=== PATIENT | male | born 1970 | race African-American/Black ===

== ENCOUNTER → 2016-10-25 | Outpatient (CLI) | payer OTHER ==
--- NOTE | 2016-10-25 12:43 | XR ---
EXAMINATION TYPE: XR lumbar spine 2 or 3V DATE OF EXAM ORDERED: 10/25/2016 12:19 PM HISTORY: Lifting trauma. COMPARISON: None. FINDINGS: Vertebral body height and alignment are maintained. Disc spaces are maintained. There is n o fractures identified. There is no evidence of spondylolysis or spondylolisthesis. The pedicles are intact. IMPRESSION: NORMAL LUMBOSACRAL SPINE.
== END | disposition home or self-care (01) ==
LOC: RADXRMAIN 11:45
PROVIDERS: ATTEND Family Medicine
DX: S39.012A Strain of muscle, fascia and tendon of lower back, initial encounter (principal)
CPT/HCPCS: 72100

== ENCOUNTER → 2020-11-16 | Outpatient (CLI) | payer OTHER ==
--- NOTE | 2020-11-16 10:12 | XR ---
EXAMINATION TYPE: XR abdomen 1V DATE OF EXAM: 11/16/2020 COMPARISON: NONE HISTORY: Pain TECHNIQUE: Single supine KUB image of the abdomen is obtained FINDINGS: Small bowel demonstrates no evidence for dilatation or air fluid levels. Gas and fecal material is seen in non-distended colon. No convincing evidence for pneumoperitoneum. No unusual calcifications. Phlebolith noted within the right hemipelvis. The lung bases are clear. The osseous structures are intact. IMPRESSION: 1. Overall nonobstructive bowel gas pattern.
== END | disposition home or self-care (01) ==
LOC: RADXRMAIN 09:00
PROVIDERS: ATTEND Family Medicine
DX: R31.29 Other microscopic hematuria (principal)
CPT/HCPCS: 74018

== ENCOUNTER 2021-04-04 06:46 | Day surgery (SDC) | payer OTHER ==
[2021-04-03 08:37] VITALS: BMI 37.5
[2021-04-04 07:22] VITALS: TEMP 96.9
[2021-04-04] MEDS: LACTATED RINGERS 1,000 ML IV SCH ×2 (07:27→08:31)
--- NOTE | 2021-04-04 07:43 | P.GSHP ---
History of Present Illness H&P Date: 04/04/21 CHIEF COMPLAINT: Colon screen HISTORY OF PRESENT ILLNESS: The patient is a 51-year-old male who presents for colon screen. Lower endoscopy was offered for further evaluation and management. PAST MEDICAL HISTORY: Please see list. PAST SURGICAL HISTORY: Please see list. MEDICATIONS: Please see list. ALLERGIES: Please see list. SOCIAL HISTORY: No illicit drug use FAMILY HISTORY: No reports of Crohn disease or ulcerative colitis. REVIEW OF ORGAN SYSTEMS: CONSTITUTIONAL: No reports of fevers or chills. PHYSICAL EXAM: VITAL SIGNS: Stable GENERAL: Well-developed pleasant in no acute distress. HEENT: No scleral icterus. Extraocular movements grossly intact. Moist buccal mucosa. NECK: Supple without lymphadenopathy. CHEST: Unlabored respirations. Equal bilateral excursions. CARDIOVASCULAR: Regular rate and rhythm. Distal 2+ pulses. ABDOMEN: Soft, nontender, nondistended. MUSCULOSKELETAL: No clubbing, cyanosis, or edema. ASSESSMENT: 1. Colon screen. PLAN: 1. Recommend proceeding with a lower endoscopy Past Medical History Past Medical History: Hypertension Additional Past Medical History / Comment(s): hx irregular heart beat, stomach ulcer (90's), psoriasis. History of Any Multi-Drug Resistant Organisms: None Reported Additional Past Surgical History / Comment(s): EGD, ? Surgery for hole in heart. Past Anesthesia/Blood Transfusion Reactions: No Reported Reaction Past Psychological History: No Psychological Hx Reported Smoking Status: Never smoker Past Alcohol Use History: Rare Past Drug Use History: None Reported - Past Family History Mother Family Medical History: Cancer Additional Family Medical History / Comment(s): breast cancer Medications and Allergies Home Medications Medication Instructions Recorded Confirmed Type Benicar-Hctz? Unknown Dose 1 tab PO DAILY 04/03/21 History Lipitor (Unknown Dose) 1 tab PO HS 04/03/21 History Allergies Allergy/AdvReac Type Severity Reaction Status Date / Time naproxen [From Aleve] Allergy Unknown Rash/Hives Verified 04/04/21 07:08 tuberculosis vaccine Allergy Unknown Rash/Hives Uncoded 04/04/21 07:08 Surgical - Exam Vital Signs Temp Pulse Resp BP Pulse Ox 96.9 F L 70 16 186/110 96 04/04/21 07:08 04/04/21 07:08 04/04/21 07:08 04/04/21 07:08 04/04/21 07:08
[2021-04-04] MEDS ORDERED: PROPOFOL 10 MG/ML 20 ML VIAL IV ONE (07:46)
[2021-04-04] MEDS ORDERED: LIDOCAINE 1% INJ 10MG/ML (20 ML MDV) ONE (07:46)
--- NOTE | 2021-04-04 08:06 | P.PCN ---
Date of Procedure: 04/04/21 Description of Procedure: PREOPERATIVE DIAGNOSIS: Colonoscopy screening. POSTOPERATIVE DIAGNOSIS: Colonoscopy screening. OPERATION: Colonoscopy to the cecum, ileocecal valve and appendiceal orifice. SURGEON: Linnette Duenas MD. ANESTHESIA: MAC. INDICATIONS: The patient is a 51-year-old male who presents for colonoscopy screening. Benefits and risks were described and informed consent was obtained. DESCRIPTION OF PROCEDURE: The patient had undergone Sutab prep. The patient had been brought into the operating room and laid in the left lateral decubitus position. After adequate intravenous sedation, the rectum was examined with 2% lidocaine jelly. The prostate was unremarkable. No external hemorrhoids were encountered. The rectal tone was within normal limits. No lesions were palpated in the rectal vault. An Olympus colonoscope was advanced until the cecum, ileocecal valve and appendic eal orifice were clearly viewed. The prep was excellent. No scattered diverticulosis was encountered. No colonic polyps were found. No evidence of focal colitis was found. Retroflexion of the scope demonstrated grade 1 internal hemorrhoids without active bleeding or inflammation. The colon was desufflated. The patient had tolerated the procedure well. Withdrawal time was over 6 minutes. FINDINGS: Aronchick preparation quality scale 1 (1-5) Internal hemorrhoids, grade 1 No external prolapsed hemorrhoids. No arteriovenous malformations. No adenomatous polyps. No focal colitis. RECOMMENDATIONS: Lower endoscopy in 2030 Plan - Discharge Summary New Discharge Prescriptions: Continue Lipitor (Unknown Dose) 1 tab PO HS Benicar-Hctz? Unknown Dose 1 tab PO DAILY Discharge Medication List Benicar-Hctz? Unknown Dose 1 tab PO DAILY 04/03/21 [History] Lipitor (Unknown Dose) 1 tab PO HS 04/03/21 [History] Follow up Appointment(s)/Referral(s): Linnette Duenas MD [STAFF PHYSICIAN] - As Needed Patient Instructions/Handouts: *Surgery [facility] - (Anesthesia) Endoscopy Discharge Instructions, Colonoscopy (DC) Activity/Diet/Wound Care/Special Instructions: Colonoscopy 2030 Discharge Disposition: HOME SELF-CARE
[2021-04-04 08:23] VITALS: BP 174/96; PULSE 71; RESP 16
== END 2021-04-04 08:49 | disposition home or self-care (01) ==
LOC: ORWHC2ENDO 06:46
PROVIDERS: ATTEND Surgery Plastic and Reconstructive Surgery
DX: Z12.11 Encounter for screening for malignant neoplasm of colon (principal); K64.0 First degree hemorrhoids; I10 Essential (primary) hypertension; Z87.11 Personal history of peptic ulcer disease; L40.9 Psoriasis, unspecified; Z80.3 Family history of malignant neoplasm of breast; I49.9 Cardiac arrhythmia, unspecified; E78.5 Hyperlipidemia, unspecified; K21.9 Gastro-esophageal reflux disease without esophagitis; Z97.2 Presence of dental prosthetic device (complete) (partial); Z98.890 Other specified postprocedural states; Z79.899 Other long term (current) drug therapy; Z88.6 Allergy status to analgesic agent; Z88.7 Allergy status to serum and vaccine
CPT/HCPCS: G0121; J2001; J2704; 45378

== ENCOUNTER 2023-12-19 03:12 | Observation (INO) | payer OTHER ==
--- NOTE | 2023-12-19 03:38 | ED ---
Chest Pain HPI - General Chief Complaint: Extremity Problem,Nontraumatic Stated Complaint: Chest pain Time Seen by Provider: 12/19/23 03:20 Source: patient, RN notes reviewed, old records reviewed Mode of arrival: ambulatory Limitations: no limitations - History of Present Illness Initial Comments: This is a 53-year-old male to the ER for evaluation today. Patient was today for evaluation regards to severe chest pain left-sided chest pain left arm pain back pain. Patient states he woke with the symptoms tonight with shortness of breath and sweating. He has had episodic pain for the last 2 days MD Complaint: chest pain, other (Back pain left arm pain) -: hour(s) Onset: awoke with symptoms Pain Location: left chest Pain Radiation: none, back Severity: severe Severity scale (1-10): 8 Quality: tightness, sharp Consistency: constant Improves With: nothing Worsens With: nothing Anginal Symptoms: diaphoresis, dyspnea, sense of impending doom Other Symptoms: palpitations Treatments Prior to Arrival: none - Related Data Home Medications Medication Instructions Recorded Confirmed Benicar-Hctz? Unknown Dose 1 tab PO DAILY 04/03/21 Lipitor (Unknown Dose) 1 tab PO HS 04/03/21 Allergies Allergy/AdvReac Type Severity Reaction Status Date / Time naproxen [From Aleve] Allergy Unknown Rash/Hives Verified 12/19/23 03:17 tuberculosis vaccine Allergy Unknown Rash/Hives Uncoded 12/19/23 03:17 Review of Systems ROS Statement: Those systems with pertinent positive or pertinent negative responses have been documented in the HPI. ROS Other: All systems not noted in ROS Statement are negative. EKG Findings - EKG Comments: EKG Findings:: EKG is sinus bradycardia 56 NJ 211 QRS 117 QTc 426 Past Medical History Past Medical History: Hypertension Additional Past Medical History / Comment(s): hx irregular heart beat, stomach ulcer (90's), psoriasis. History of Any Multi-Drug Resistant Organisms: None Reported Additional Past Surgical History / Comment(s): EGD, ? Surgery for hole in heart. Past Anesthesia/Blood Transfusion Reactions: No Reported Reaction Past Psychological History: No Psychological Hx Reported Smoking Status: Never smoker Past Alcohol Use History: Rare Past Drug Use History: None Reported - Past Family History Mother Family Medical History: Cancer Additional Family Medical History / Comment(s): breast cancer General Exam Limitations: no limitations General appearance: anxious Head exam: Present: atraumatic, normocephalic, normal inspection Eye exam: Present: normal appearance, PERRL, EOMI. Absent: scleral icterus, conjunctival injection, periorbital swelling ENT exam: Present: normal exam, mucous membranes moist Neck exam: Present: normal inspection. Absent: tenderness, meningismus, lymphadenopathy Respiratory exam: Present: normal lung sounds bilaterally. Absent: respiratory distress, wheezes, rales, rhonchi, stridor Cardiovascular Exam: Present: regular rate, normal rhythm, normal heart sounds. Absent: systolic murmur, diastolic murmur, rubs, gallop, clicks GI/Abdominal exam: Present: soft, normal bowel sounds. Absent: distended, tenderness, guarding, rebound, rigid Extremities exam: Present: normal inspection, full ROM, normal capillary refill. Absent: tenderness, pedal edema, joint swelling, calf tenderness Back exam: Present: normal inspection Neurological exam: Present: alert, oriented X3, CN II-XII intact Psychiatric exam: Present: normal affect, normal mood Skin exam: Present: warm, dry, intact, normal color. Absent: rash Course Vital Signs 12/19/23 12/19/23 12/19/23 03:14 04:51 05:00 Temperature 97.5 F L Pulse Rate 72 62 53 L Respiratory 18 18 18 Rate Blood Pressure 206/97 194/104 157/92 O2 Sat by Pulse 98 100 96 Oximetry 12/19/23 05:30 Temperature Pulse Rate 53 L Respiratory 18 Rate Blood Pressure 182/124 O2 Sat by Pulse Oximetry - Reevaluation(s) Reevaluation #1: 12/19/23 04:13 Medical records reviewed Reevaluation #2: 12/19/23 06:19 Patient's blood pressure and pain is improving but still with chest pain Reevaluation #3: 12/19/23 06:19 Patient informed of results and questions answered Reevaluation #4: Was pt. sent in by a medical professional or institution (, PA, RN TELEHEALTH, urgent care, hospital, or fdc...) When possible be specific @ -no Did you speak to anyone other than the patient for history (EMS, parent, family, police, friend...)? What history was obtained from this source @ -no Did you review nursing and triage notes (agree or disagree)? Why? @ -agree Are old charts reviewed (outside hosp., previous admission, EMS record, old EKG, old radiological studies, urgent care reports/EKG's, fdc records)? Report findings @ -yes Differential Diagnosis (chest pain, altered mental status, abdominal pain women, abdominal pain men, vaginal bleeding, weakness, fever, dyspnea, syncope, headache, dizziness, GI bleed, back pain, seizure, CVA, palpatations, mental health, musculoskeletal)? @ -prior EKG interpreted by me (3pts min.). @ -yes X-rays interpreted by me (1pt min.). @ -yes negative for acute disease CT interpreted by me (1pt min.). @ -no U/S interpreted by me (1pt. min.). @ -no What testing was considered but not performed or refused? (CT, X-rays, U/S, labs)? Why? @ -none What meds were considered but not given or refused? Why? @ -none Did you discuss the management of the patient with other professionals (professionals i.e. , PA, RN TELEHEALTH, lab, RT, psych nurse, social work manager, package line operator, teacher, certification officer, assistant case manager)? Give summary @ -no Was smoking cessation discussed for >3mins.? @ -no Was critical care preformed (if so, how long)? @ -no Were there social determinants of health that impacted care today? How? (Homelessness, low income, unemployed, alcoholism, drug addiction, transportation, low edu. Level, literacy, decrease access to med. care, usp, rehab)? @ -none Was there de-escalation of care discussed even if they declined (Discuss DNR or withdrawal of care, Hospice)? DNR status @ -no What co-morbidities impacted this encounter? (DM, HTN, Smoking, COPD, CAD, Cancer, CVA, ARF, Chemo, Hep., AIDS, mental health diagnosis, sleep apnea, morbid obesity)? @ -none Was patient admitted / discharged? Hospital course, mention meds given and route, prescriptions, significant lab abnormalities, going to OR and other pertinent info. @ - Undiagnosed new problem with uncertain prognosis? @ -no Drug Therapy requiring intensive monitoring for toxicity (Heparin, Nitro, Insulin, Cardizem)? @ -no Were any procedures done? @ -no Diagnosis/symptom? @ - Acute, or Chronic, or Acute on Chronic? @ -Acute Uncomplicated (without systemic symptoms) or Complicated (systemic symptoms)? @ -Complicated Side effects of treatment? @ -no Exacerbation, Progression, or Severe Exacerbation? @ -exacerbation Poses a threat to life or bodily function? How? (Chest pain, USA, DC, pneumonia, PE, COPD, DKA, ARF, appy, cholecystitis, CVA, Diverticulitis, Homicidal, Suicidal, threat to staff... and all critical care pts) @ -yes Reevaluation #5: Differential Chest Pain: Stable Angina, Unstable Angina, STEMI, NSTEMI Aortic Dissection, Pneumothorax, Musculoskeletal, Esophageal Spasm GERD, Cholecystitis, Pancreatitis, Zoster, this is not meant to be an all-inclusive list. - Consultations Consultation #1: Spoke with [facility] who agrees to admit this patient Chest Pain MDM - MDM 53 male to ER for evaluation today. [place] evaluation regards to severe chest pain that woke him up from sleep last night. Chest pain back pain left arm pain with severely elevated blood pressure. Blood pressure is improved pain persistent patient will be admitted for cardiology to see Critical Care Time Critical Care Time: Yes Total Critical Care Time: 31 Disposition Clinical Impression: Chest pain, Hypertension Disposition: ADMITTED IP TO THIS HOSP Condition: Fair Is patient prescribed a controlled substance at d/c from ED?: No Referrals: Kanu Zamora DO [Primary Care Provider] - 1-2 days Time of Disposition: 06:20
[2023-12-19] MEDS: LABETALOL 5 MG/ML VIAL MDV IVP STA (04:04)
[2023-12-19] MEDS: MORPHINE SULFATE 4 MG/ML SYRINGE IV STA (04:04)
[2023-12-19 04:52] LABS: Basophils % (A) 1 %; Eosinophils # (A) 0.2 k/uL (0-0.7); Eosinophils % (A) 3 %; HCT 40.6 % (39.0-53.0); HGB 12.8 gm/dL (13.0-17.5); Lymphocytes # (A) 1.8 k/uL (1.0-4.8); Lymphocytes % (A) 29 %; MCH 24.7 pg (25.0-35.0); MCHC 31.6 g/dL (31.0-37.0); MCV 78.2 fL (80.0-100.0); Mean Platelet Volume 7.8; Microcytosis Slight; Monocytes # (A) 0.3 k/uL (0-1.0); Monocytes % (A) 5 %; Neutrophils # (A) 3.7 k/uL (1.3-7.7); Neutrophils % (A) 60 %; Platelet Count 215 k/uL (150-450); RBC 5.19 m/uL (4.30-5.90); RDW 15.9 % (11.5-15.5); WBC 6.2 k/uL (3.8-10.6)
[2023-12-19 05:03] LABS: ALT 54 U/L (4-49); AST 39 U/L (17-59); African American GFR (CKD) >90 (>60 ml/min/1.73 sqM); Albumin 3.6 g/dL (3.5-5.0); Alkaline Phosphatase 78 U/L (38-126); Anion Gap 5 mmol/L; Blood Urea Nitrogen 17 mg/dL (9-20); Calcium 8.6 mg/dL (8.4-10.2); Carbon Dioxide 25 mmol/L (22-30); Chloride 106 mmol/L (98-107); Glucose 111 mg/dL (74-99); Lipase 56 U/L (23-300); Non-African American GFR(CKD) >90 (>60 ml/min/1.73 sqM); Potassium 3.8 mmol/L (3.5-5.1); Sodium 136 mmol/L (137-145); Total Bilirubin 0.4 mg/dL (0.2-1.3); Total Protein 6.8 g/dL (6.3-8.2)
--- NOTE | 2023-12-19 05:08 | CT ---
EXAMINATION TYPE: CT abdomen pelvis w con DATE OF EXAM: 12/19/2023 COMPARISON: None HISTORY: Pain CT DLP: 1210.1 mGycm, Automated Exposure Control for Dose Reduction was Utilized. CONTRAST: CT scan of the abdomen and pelvis is performed without oral and with IV Contrast, patient injected wi th 100 mL of Isovue 370. FINDINGS: LUNG BASES: Please refer to same-day CT chest report for complete details on the lung bases. LIVER/GB: A few subcentimeter low dense lesions throughout the liver are presumed benign. Somewhat co ntracted gallbladder. PANCREAS: No significant abnormality is seen. SPLEEN: No significant abnormality is seen. ADRENALS: No significant abnormality is seen. KIDNEYS:, Right-sided pelvic phlebolith. Symmetric cortical medullary uptake and excretion without hy dronephrosis seen bilaterally. BOWEL: Normal appearing appendix. No abnormal small or large bowel dilatation PROSTATE/SEMINAL VESICLES: No gross abnormality seen. LYMPH NODES: No greater than 1cm abdominal or pelvic lymph nodes are appreciated. OSSEOUS STRUCTURES: No significant abnormality is seen. OTHER: Small to moderate-sized fat-containing right inguinal hernia. IMPRESSION: No significant acute finding is seen.
[2023-12-19 05:11] LABS: NT-Pro-B-Type Natriuretic Pept 280 pg/mL
--- NOTE | 2023-12-19 05:13 | CT ---
EXAMINATION TYPE: CT angio chest DATE OF EXAM: 12/19/2023 COMPARISON: NONE HISTORY: CHEST PAIN CT DLP: 661.3 mGycm. Automated Exposure Control for Dose Reduction was Utilized. CONTRAST: CTA scan of the thorax is performed with IV Contrast, patient injected with 100 mL of Isovue 370, pul monary embolism protocol. MIP Images are created on CT scanner and reviewed. FINDINGS: LUNGS: The lungs are grossly clear, there is no concerning parenchymal mass or nodule identified. T here is no pleural effusion or pneumothorax seen. The tracheobronchial tree is patent. MEDIASTINUM: There is satisfactory enhancement of the pulmonary artery and its branches, there is no CT evidence for pulmonary embolism. Some enhancement of the aorta without aneurysm or dissection. Th ere are no greater than 1 cm hilar or mediastinal lymph nodes. Heart size upper limits of normal. No pericardial effusion is seen. Coronary calcifications are present. OTHER: Please refer to same day CT abdomen and pelvis report for complete details on the upper abdome n. Small degree of bilateral subareolar gynecomastia. IMPRESSION: No CT evidence for acute pulmonary embolism. No suspicious acute pulmonary process.
[2023-12-19 05:19] LABS: Partial Thromboplastin Time 24.1 sec (22.0-30.0); Prothrombin Time 11.2 sec (10.0-12.5)
[2023-12-19] MEDS ORDERED: NALOXONE 0.4 MG/ML 1 ML VIAL IV PRN (06:17)
[2023-12-19] MEDS ORDERED: ONDANSETRON 4 MG/2 ML VIAL IVP PRN (06:17)
[2023-12-19] MEDS ORDERED: MORPHINE SULFATE 4 MG/ML SYRINGE IV PRN (06:17)
[2023-12-19] MEDS: SODIUM CHLORIDE 0.9% 1,000 ML IV STA (06:34)
[2023-12-19] MEDS: SPIRONOLACTONE 25 MG TAB PO SCH (10:44)
[2023-12-19] MEDS: amLODIPine 10 MG TAB PO SCH (10:44)
[2023-12-19] MEDS: lisinopriL 20 MG TAB PO SCH (10:44)
--- NOTE | 2023-12-19 11:46 | P.CRDCN ---
History of Present Illness History of present illness: HISTORY OF PRESENT ILLNESS: This is a 53-year-old male with a past medical history significant for cardiomyopathy of unknown origin and hypertension. Patient does not follow with a size tester. We have been asked to see the patient in consultation for chest pain. Patient examined at the bedside in the emergency room. Patient states that he woke up from a sleep this morning with pain in his back that radiated into his chest. He also reports feeling some tingling in his arm. He reports feeling diaphoretic. He states that he looked down at his arms and thought 1 was a different color than the other and he became concerned so he came to the hospital for further evaluation. The patient had an echocardiogram performed in 2016 revealing ejection fraction 40 to 45%. The patient denies having a previous cardiac catheterization. The patient reports reports he had a LOBO in the past. He states this was done because he was told he had a hole in his heart. He states that he thought this was performed at this hospital however there is no record of this. The patient also does not have any records at [facility]. DIAGNOSTICS: - EKG reveals sinus mechanism with mild ST elevation in V1-V3 - Chest CTA: Negative for acute pulmonary embolism. No suspicious acute pulm onary process - Laboratory data: WBC 6.2. Hemoglobin 12.8. Platelet count 215. D-dimer 0.28. Sodium 136. Potassium 3.8. BUN 17. Creatinine 0.9. Magnesium 2.0. Troponin negative x 2. proBNP 280 - Current home cardiac medications include lisinoprilhydrochlorothiazide 20-25 mg daily and rosuvastatin-ezetimibe 40-10 mg daily. REVIEW OF SYSTEMS: At the time of my exam: CONSTITUTIONAL: Denies fever or chills. HEENT: Denies blurred vision, vision changes, or eye pain. Denies hemoptysis CARDIOVASCULAR: Denies chest pain. Denies orthopnea. Denies PND. Denies palpitations RESPIRATORY: Denies shortness of breath. GASTROINTESTINAL: Denies abdominal pain. Denies nausea or vomiting. HEMATOLOGIC: Denies bleeding disorders. GENITOURINARY: Denies any blood in urine. SKIN: Denies pruitis. Denies rash. PHYSICAL EXAM: VITAL SIGNS: Reviewed. GENERAL: Well-developed in no acute distress. HEENT: Head is normocephalic. Pupils are equal, round. Sclerae anicteric. Mucous membranes of the mouth are moist. Neck supple. No JVD or thyromegaly LUNGS: Respirations even and unlabored. Lungs essentially clear to auscultation bilaterally. HEART: Regular rate and rhythm. S1 and S2 heard. + murmur ABDOMEN: Soft. Nondistended. Nontender. EXTREMITIES: Normal range of motion. No clubbing or cyanosis. Peripheral pulses intact. No lower extremity edema NEUROLOGIC: Awake and alert. Oriented x 3. ASSESSMENT: Chest pain, troponin negative x 2 Hypertensive emergency History of hypertension History of hyperlipidemia PLAN: Obtain 2D echo to assess cardiac structure and function Resume home medications Increase lisinopril to 20 mg twice a day Add amlodipine 10 mg daily Add Aldactone 25 mg daily Continue to monitor blood pressure Patient presented with an abnormal EKG. No previous EKG in EMR for review. ER laboratory secretary called Dr. Zamora's office who stated that they had no EKGs on file. Repeat EKG this morning Further recommendations pending patient course Nurse practitioner note has been reviewed by physician. Signing provider agrees with the documented findings, assessment, and plan of care documented by CASTING INSPECTOR as a scribe. Past Medical History Past Medical History: Hypertension Additional Past Medical History / Comment(s): hx irregular heart beat, stomach ulcer (90's), psoriasis. History of Any Multi-Drug Resistant Organisms: None Reported Additional Past Surgical History / Comment(s): EGD, ? Surgery for hole in heart. Past Anesthesia/Blood Transfusion Reactions: No Reported Reaction Past Psychological History: No Psychological Hx Reported Smoking Status: Never smoker Past Alcohol Use History: Rare Past Drug Use History: None Reported - Past Family History Mother Family Medical History: Cancer Additional Family Medical History / Comment(s): breast cancer Medications and Allergies Home Medications Medication Instructions Recorded Confirmed Type Ezetimibe/Rosuvastatin Calcium 1 tab PO DAILY 12/19/23 12/19/23 History [Ezetimibe/Rosuvastatin Calcium 40-10Mg] Lisinopril-Hctz 20-25 mg 1 tab PO DAILY 12/19/23 12/19/23 History [Zestoretic 20-25] Allergies Allergy/AdvReac Type Severity Reaction Status Date / Time naproxen [From Aleve] Allergy Unknown Rash/Hives Verified 12/19/23 07:56 tuberculosis vaccine Allergy Unknown Rash/Hives Uncoded 12/19/23 03:17 Physical Exam Vitals: Vital Signs Temp Pulse Resp BP Pulse Ox 12/19/23 06:29 50 L 16 159/96 95 12/19/23 05:30 53 L 18 182/124 12/19/23 05:00 53 L 18 157/92 96 12/19/23 04:51 62 18 194/104 100 12/19/23 03:14 97.5 F L 72 18 206/97 98 Intake and Output 12/18/23 12/19/23 12/19/23 22:59 06:59 14:59 Other: Weight 120.202 kg Results 12/19/23 04:35 12/19/23 04:35 Cardiac Enzymes 12/19/23 12/19/23 Range/Units 04:35 04:35 AST 39 (17-59) U/L Troponin I <0.012 (0.000-0.034) ng/mL Coagulation 12/19/23 Range/Units 04:35 PT 11.2 (10.0-12.5) sec APTT 24.1 (22.0-30.0) sec CBC 12/19/23 Range/Units 04:35 WBC 6.2 (3.8-10.6) k/uL RBC 5.19 (4.30-5.90) m/uL Hgb 12.8 L (13.0-17.5) gm/dL Hct 40.6 (39.0-53.0) % Plt Count 215 (150-450) k/uL Comprehensive Metabolic Panel 12/19/23 Range/Units 04:35 Sodium 136 L (137-145) mmol/L Potassium 3.8 (3.5-5.1) mmol/L Chloride 106 (98-107) mmol/L Carbon Dioxide 25 (22-30) mmol/L BUN 17 (9-20) mg/dL Creatinine 0.90 (0.66-1.25) mg/dL Glucose 111 H (74-99) mg/dL Calcium 8.6 (8.4-10.2) mg/dL AST 39 (17-59) U/L ALT 54 H (4-49) U/L Alkaline Phosphatase 78 (38-126) U/L Total Protein 6.8 (6.3-8.2) g/dL Albumin 3.6 (3.5-5.0) g/dL Current Medications Generic Name Dose Route Start Last Admin Trade Name Freq PRN Reason Stop Dose Admin Morphine Sulfate 4 mg 12/19/23 06:17 Morphine Sulfate 4 Mg/Ml Syringe IV Q4HR PRN Severe Pain (Scale 7 to 10) Naloxone HCl 0.2 mg 12/19/23 06:17 Naloxone 0.4 Mg/Ml 1 Ml Vial IV Q2M PRN Opioid Reversal Ondansetron HCl 4 mg 12/19/23 06:17 Ondansetron 4 Mg/2 Ml Vial IVP Q8HR PRN Nausea And Vomiting Intake and Output 12/18/23 12/19/23 12/19/23 22:59 06:59 14:59 Other: Weight 120.202 kg 12/19/23 04:35 12/19/23 04:35
[2023-12-19] MEDS: hydroCHLOROthiazide 25 MG TAB PO SCH (12:07)
[2023-12-19] MEDS: ACETAMINOPHEN TAB 325 MG TAB PO PRN (13:16)
--- NOTE | 2023-12-19 18:18 | CA ---
Transthoracic Echo Report Name: Vinicio Castro Age: 53 Gender: M : 1970 Exam Date: 12/19/2023 13:33 Exam Location: [facility] Ht (in): 70 Wt (lb): 265 Ordering Physician: Ara Basilio Attending/Referring Phys: [id number], Praful Continuous Miner Celestina Medina RCS Procedure CPT: Indications: LV function, CP, uncontrolled HTN Cardiac Hx: Technical Quality: Technically difficult study Contrast 1: Definity Total Dose (mL): 2 Contrast 2: Total Dose (mL): MEASUREMENTS (Male / Female) Normal Values 2D ECHO LV Diastolic Diameter PLAX 6.1 cm 4.2 - 5.9 / 3.9 - 5.3 cm LV Systolic Diameter PLAX 4.7 cm IVS Diastolic Thickness 1.0 cm 0.6 - 1.0 / 0.6 - 0.9 cm LVPW Diastolic Thickness 0.8 cm 0.6 - 1.0 / 0.6 - 0.9 cm LV Relative Wall Thickness 0.3 RV Internal Dim ED PLAX 3.1 cm LVOT Diameter 2.0 cm LV Diastolic Volume MOD BP 124.0 cm??? 67 - 155 / 56 - 104 cm??? LV Systolic Volume MOD BP 64.8 cm??? 22 - 58 / 19 - 49 cm??? LV Ejection Fraction MOD BP 47.7 % >= 55 % LV Cardiac Index MOD BP 1380.3 cm???/min???m??? LV Diastolic Volume MOD 4C 134.2 cm??? LV Systolic Volume MOD 4C 65.8 cm??? LV Ejection Fraction MOD 4C 50.9 % LV Cardiac Index MOD 4C 1594.7 cm???/min???m??? LV Diastolic Length 4C 8.3 cm LV Systolic Length 4C 7.0 cm LV Diastolic Volume MOD 2C 111.9 cm??? LV Systolic Volume MOD 2C 59.0 cm??? LV Ejection Fraction MOD 2C 47.2 % LV Cardiac Index MOD 2C 1233.2 cm???/min???m??? LV Diastolic Length 2C 8.1 cm LV Systolic Length 2C 6.3 cm LA Volume 111.4 cm??? 18 - 58 / 22 - 52 cm??? LA Volume Index 44.8 cm???/m??? 16 - 28 cm???/m??? Ascending Aorta Diameter 3.4 cm DOPPLER AV Peak Velocity 129.7 cm/s AV Peak Gradient 6.7 mmHg AV Mean Velocity 90.0 cm/s AV Mean Gradient 3.7 mmHg AV Velocity Time Integral 28.9 cm LVOT Peak Velocity 116.3 cm/s LVOT Peak Gradient 5.4 mmHg LVOT Velocity Time Integral 23.6 cm LVOT Stroke Volume 70.9 cm??? LVOT Stroke Volume Index 30.2 ml/m??? LVOT Cardiac Index 1655.1 cm???/min???m??? AV Area Cont Eq vti 2.5 cm??? AV Area Cont Eq pk 2.7 cm??? MV Area PHT 5.6 cm??? Mitral E Point Velocity 86.8 cm/s Mitral A Point Velocity 25.2 cm/s Mitral E to A Ratio 3.5 MV Deceleration Time 135.5 ms PV Peak Velocity 77.5 cm/s PV Peak Gradient 2.4 mmHg FINDINGS Left Ventricle Left ventricular ejection fraction is estimated at 45-50 %. Mildly increased left ventricular diastolic diameter. Mildly increased left ventricular systolic volume. Mildly decreased left ventricular ejection fraction. Right Ventricle Normal right ventricular size and function. Unable to estimate right ventricular systolic function. Right Atrium Normal right atrial size by visual. Left Atrium Severely increased left atrial volume. Mildly increased left atrial area. Mitral Valve Structurally normal mitral valve. No evidence for mitral valve prolapse. No mitral stenosis. Trace mitral regurgitation. Aortic Valve Trileaflet aortic valve. No aortic valve stenosis or regurgitation. Tricuspid Valve Structurally normal tricuspid valve. No tricuspid stenosis. No tricuspid regurgitation. Pulmonic Valve Pulmonic valve not well visualized. No pulmonic stenosis. No pulmonic regurgitation. Pericardium No pericardial effusion. Aorta Normal size aortic root and proximal ascending aorta. CONCLUSIONS Dilated LV. LV systolic function is mildly impaired with EF between 45-50% and global hypokinesia Overall technically difficult study Previewed by: Dr. Javan Aguilera MD (Electronically Signed) Final Date: 19 December 2023 18:17
[2023-12-19] MEDS: ATORVASTATIN 40 MG TAB PO SCH (21:28)
[2023-12-20 08:09] VITALS: RESP 16
[2023-12-20] MEDS: EZETIMIBE 10 MG TAB PO SCH (08:39)
[2023-12-20 09:39] LABS: Basophils # (A) 0.03 X 10*3/uL (0.00-0.10); Basophils % (A) 0.5 %; Eosinophils # (A) 0.19 X 10*3/uL (0.04-0.35); Lymphocytes # (A) 1.75 X 10*3/uL (0.90-5.00); Lymphocytes % (A) 27.9 %; MCH 24.5 pg (27.0-32.0); MCHC 31.7 g/dL (32.0-37.0); MCV 77.2 FL (80.0-97.0); Mean Platelet Volume 10.8 FL (9.5-12.2); Monocytes # (A) 0.47 X 10*3/uL (0.20-1.00); Monocytes % (A) 7.5 %; NRBC Per 100 WBC 0 X 10*3/uL (0.00-0.01); Neutrophils # (A) 3.82 X 10*3/uL (1.80-7.70); Neutrophils % (A) 60.9 %; Platelet Count 253 X 10*3/uL (140-440); RBC 5.31 X 10*6/uL (4.40-5.60); RDW 17.1 % (11.5-14.5); WBC 6.27 X 10*3/uL (4.50-10.00)
[2023-12-20 10:04] LABS: ALT 53 U/L (10-49); AST 31 U/L (14-35); Albumin 3.9 g/dL (3.8-4.9); Alkaline Phosphatase 50 U/L (41-126); BUN/Creat Ratio 12.89 Ratio (12.00-20.00); Blood Urea Nitrogen 11.6 mg/dL (9.0-27.0); Calcium 9.1 mg/dL (8.7-10.3); Carbon Dioxide 28.9 mmol/L (21.6-31.8); Chloride 101 mmol/L (96-109); Globulin 2.6 g/dL (1.6-3.3); Glucose 99 mg/dL (70-110); Magnesium 2.3 mg/dL (1.5-2.4); Phosphorus 3.7 mg/dL (2.4-5.1); Potassium 4.2 mmol/L (3.5-5.5); Sodium 138 mmol/L (135-145); Total Bilirubin 0.3 mg/dL (0.3-1.2); Total Protein 6.5 g/dL (6.2-8.2)
--- NOTE | 2023-12-20 13:18 | P.PN ---
Subjective Progress Note Date: 12/20/23 This is a pleasant 53-year-old gentleman with a past medical history significant for cardiomyopathy of unknown origin and hypertension. 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 Presented to the hospital with back chest and left arm pain. He was noted to be hypertensive. Echocardiogram with Doppler study showed an ejection fraction of 45 to 50% similar to previous, with a dilated LV. The patient believes he had a LOBO done in the past however there is no records of this available to me. CTA of the chest was negative for pulmonary embolism. Troponins have been negative x 3 and NT proBNP was 280. At home he was on lisinopril hydrochlorothiazide 20-25 mg daily and rosuvastatinezetimibe 40-10 mg daily. He has been started on Aldactone 25 mg daily and amlodipine 10 mg daily. Upon examination patient is sitting up in a chair. He is overall feeling better. He denies any shortness of breath or palpitations. He said no dizziness or lightheadedness. He continues to have some back discomfort that is mildly worsened with deep inspiration but no further chest or arm pain. Blood pressure is a bit better controlled. Objective - Vital Signs Vital signs: Vital Signs Temp 97.6 F 12/20/23 07:20 Pulse 50 L 12/20/23 07:20 Resp 16 12/20/23 07:20 BP 155/88 12/20/23 07:20 Pulse Ox 99 12/20/23 07:20 FiO2 Intake & Output 12/19/23 12/20/23 12/20/23 18:59 06:59 18:59 Intake Total 100 Balance 100 Weight 120.202 kg Intake: Oral 100 Other: Voiding Method Toilet # Voids 1 - Exam VITAL SIGNS: Reviewed. GENERAL: Well-developed in no acute distress. HEENT: Head is normocephalic. Pupils are equal, round. Sclerae anicteric. Mucous membranes of the mouth are moist. Neck supple. No JVD or thyromegaly LUNGS: Respirations even and unlabored. Lungs essentially clear to auscultation bilaterally. HEART: Regular rate and rhythm. S1 and S2 heard. + murmur ABDOMEN: Soft. Nondistended. Nontender. EXTREMITIES: Normal range of motion. No clubbing or cyanosis. Peripheral pulses intact. No lower extremity edema NEUROLOGIC: Awake and alert. Oriented x 3. - Labs CBC & Chem 7: 12/20/23 05:55 12/20/23 05:55 Assessment and Plan Assessment: Chest pain, troponin negative x 3 Hypertensive emergency History of hypertension History of hyperlipidemia Plan: From cardiology's perspective medications were reviewed and we will discontinue amlodipine. Will start the patient on hydralazine and nitrate. He will monitor his blood pressure at home. Discussed importance of lifestyle modifications including low-sodium diet. From our perspective patient may be discharged home and follow-up in the office in the outpatient for further ischemic workup once blood pressure is well-controlled. Will be scheduled with Dr. Aguilera. SOLE CUTTER note has been reviewed, I agree with a documented findings and plan of care. Patient was seen and examined.
[2023-12-20] MEDS: ISOSORBIDE MONONITRATE ER 30 MG TAB.ER.24H PO SCH (13:46)
[2023-12-20] MEDS: hydrALAZINE HCL 50 MG TAB PO SCH (13:47)
--- NOTE | 2023-12-20 16:29 | P.HPIM ---
History of Present Illness H&P Date: 12/19/23 Chief Complaint: Chest pain 53-year-old male to the ER for evaluation today. Patient was today for evaluation regards to severe chest pain left-sided chest pain left arm pain back pain. Patient states he woke with the symptoms tonight with shortness of breath and sweating. He has had episodic pain for the last 2 days Patient states that he woke up from a sleep this morning with pain in his back that radiated into his chest. He also reports feeling some tingling in his arm. He reports feeling diaphoretic. He states that he looked down at his arms and thought 1 was a different color than the other and he became concerned so he came to the hospital for further evaluation. The patient had an echocardiogram performed in 2016 revealing ejection fraction 40 to 45%. The patient denies having a previous cardiac catheterization. The patient reports reports he had a LOBO in the past. He states this was done because he was told he had a hole in his heart. Blood work completed in ED reveals a WBC of 6.2, hemoglobin of 12.8 and platelet count of 215, sodium 136, potassium 3.8, BUNs/creatinine 17/0.9 and blood glucose of 111 Review of Systems REVIEW OF SYSTEMS: CONSTITUTIONAL: No fever, no malaise, no fatigue. HEENT: No recent visual problems or hearing problems. Denied any sore throat. CARDIOVASCULAR: No chest pain, orthopnea, PND, no palpitations, no syncope. PULMONARY: No shortness of breath, no cough, no hemoptysis. GASTROINTESTINAL: No diarrhea, no nausea, no vomiting, no abdominal pain. NEUROLOGICAL: No headaches, no weakness, no numbness. HEMATOLOGICAL: Denies any bleeding or petechiae. GENITOURINARY: Denies any burning micturition, frequency, or urgency. MUSCULOSKELETAL/RHEUMATOLOGICAL: Denies any joint pain, swelling, or any muscle pain. ENDOCRINE: Denies any polyuria or polydipsia. The rest of the 14-point review of systems is negative. Past Medical History Past Medical History: Hypertension Additional Past Medical History / Comment(s): hx irregular heart beat, stomach ulcer (90's), psoriasis. History of Any Multi-Drug Resistant Organisms: None Reported Additional Past Surgical History / Comment(s): EGD, ? Surgery for hole in heart. Past Anesthesia/Blood Transfusion Reactions: No Reported Reaction Past Psychological History: No Psychological Hx Reported Smoking Status: Never smoker Past Alcohol Use History: Rare Past Drug Use History: None Reported - Past Family History Mother Family Medical History: Cancer Additional Family Medical History / Comment(s): breast cancer Medications and Allergies Home Medications Medication Instructions Recorded Confirmed Type Ezetimibe/Rosuvastatin Calcium 1 tab PO DAILY 12/19/23 12/19/23 History [Ezetimibe/Rosuvastatin Calcium 40-10Mg] Lisinopril-Hctz 20-25 mg 1 tab PO DAILY 12/19/23 12/19/23 History [Zestoretic 20-25] Allergies Allergy/AdvReac Type Severity Reaction Status Date / Time naproxen [From Aleve] Allergy Unknown Rash/Hives Verified 12/19/23 07:56 tuberculosis vaccine Allergy Unknown Rash/Hives Uncoded 12/19/23 03:17 Physical Exam Vitals: Vital Signs Temp Pulse Resp BP Pulse Ox 12/19/23 12:00 56 L 16 176/99 98 12/19/23 10:00 50 L 16 173/97 100 12/19/23 06:29 50 L 16 159/96 95 12/19/23 05:30 53 L 18 182/124 12/19/23 05:00 53 L 18 157/92 96 12/19/23 04:51 62 18 194/104 100 12/19/23 03:14 97.5 F L 72 18 206/97 98 Intake and Output 12/18/23 12/19/23 12/19/23 22:59 06:59 14:59 Other: Weight 120.202 kg General appearance: Present: average body habitus, cooperative, no acute distress Eyes: Present: anicteric sclerae, EOMI, PERRLA, normal appearance Neck: Present: normal ROM. Absent: lymphadenopathy, rigidity, thyromegaly Carotids: negative: bruit present Thyroid: bilateral: normal size, negative: enlarged, nodule Respiratory: bilateral: CTA, negative: rales, rhonchi, wheezing Cardiovascular: regular: normal: S1, S2 Abnormal Heart Sounds: Absent: systolic murmur, diastolic murmur Neurologic: Present: CNII-XII intact. Absent: focal deficits Musculoskeletal: Present: gait normal, strength equal bilaterally Psychiatric: Present: A&O x's 3, appropriate affect, intact judgment & insight Results CBC & Chem 7: 12/20/23 05:55 12/20/23 05:55 Labs: Abnormal Lab Results - Last 24 Hours (Table) 12/19/23 12/19/23 Range/Units 04:35 04:35 Hgb 12.8 L (13.0-17.5) gm/dL MCV 78.2 L (80.0-100.0) fL MCH 24.7 L (25.0-35.0) pg RDW 15.9 H (11.5-15.5) % Sodium 136 L (137-145) mmol/L Glucose 111 H (74-99) mg/dL ALT 54 H (4-49) U/L Assessment and Plan Assessment: 1. Chest pain rule out acute coronary syndrome --Patient is being admitted to telemetry; monitor EKG and trend troponin -Consult cardiology 2. Hypertensive emergency; patient takes lisinoprilhydrochlorothiazide 20-25 mg daily; patient has been placed on home medications; monitor blood pressure closely and adjust medications as needed 3. Hyperlipidemia; currently on rosuvastatin/ezetimibe 40-10 mg daily DVT prophylaxis; SCDs CODE STATUS; full code
[2023-12-21 08:23] VITALS: BP 143/77; PULSE 53; TEMP 98
--- NOTE | 2023-12-21 12:53 | P.PN ---
Subjective Progress Note Date: 12/21/23 This is a pleasant 53-year-old gentleman with a past medical history significant for cardiomyopathy of unknown origin and hypertension. 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 Presented to the hospital with back chest and left arm pain. He was noted to be hypertensive. Echocardiogram with Doppler study showed an ejection fraction of 45 to 50% similar to previous, with a dilated LV. The patient believes he had a LOBO done in the past however there is no records of this available to me. CTA of the chest was negative for pulmonary embolism. Troponins have been negative x 3 and NT proBNP was 280. At home he was on lisinopril hydrochlorothiazide 20-25 mg daily and rosuvastatinezetimibe 40-10 mg daily. He has been started on Aldactone 25 mg daily and amlodipine 10 mg daily. Upon examination patient is sitting up in a chair. He is overall feeling better. He denies any shortness of breath or palpitations. He said no dizziness or lightheadedness. He continues to have some back discomfort that is mildly worsened with deep inspiration but no further chest or arm pain. Blood pressure is a bit better controlled. 12/21/2023 The patient was seen and examined sitting up in a chair. He is feeling quite a bit better. Denies any further complaints of chest discomfort. He denies further complaints of back discomfort. Blood pressure is better controlled. He continues on lisinopril, hydrochlorothiazide, ezetimibe, atorvastatin in place of the rosuvastatin, hydralazine, spironolactone and isosorbide. Objective - Vital Signs Vital signs: Vital Signs Temp 98.0 F 12/21/23 07:10 Pulse 53 L 12/21/23 07:10 Resp 16 12/21/23 07:10 BP 143/77 12/21/23 07:10 Pulse Ox 99 12/21/23 07:10 FiO2 Intake & Output 12/20/23 12/21/23 12/21/23 18:59 06:59 18:59 Intake Total 808 118 Balance 808 118 Intake: Oral 808 118 Other: # Voids 2 1 - Exam VITAL SIGNS: Reviewed. GENERAL: Well-developed in no acute distress. HEENT: Head is normocephalic. Pupils are equal, round. Sclerae anicteric. Mucous membranes of the mouth are moist. Neck supple. No JVD or thyromegaly LUNGS: Respirations even and unlabored. Lungs essentially clear to auscultation bilaterally. HEART: Regular rate and rhythm. S1 and S2 heard. + murmur ABDOMEN: Soft. Nondistended. Nontender. EXTREMITIES: Normal range of motion. No clubbing or cyanosis. Peripheral pulses intact. No lower extremity edema NEUROLOGIC: Awake and alert. Oriented x 3. - Labs CBC & Chem 7: 12/20/23 05:55 12/20/23 05:55 Assessment and Plan Assessment: Chest pain, troponin negative x 3 Hypertensive emergency History of hypertension History of hyperlipidemia Plan: From cardiology's perspective medications were reviewed and we will continue the same. He will monitor his blood pressure at home. Discussed importance of lifestyle modifications including low-sodium diet. From our perspective patient may be discharged home and follow-up in the office in the outpatient for further ischemic workup once blood pressure is well-controlled. Will be scheduled with Dr. Aguilera. FISH FARM MANAGER note has been reviewed, I agree with a documented findings and plan of care. Patient was seen and examined.
== END 2023-12-21 12:39 | disposition home or self-care (01) ==
LOC: EC 03:12 → 6NMEDSUR 06:17
PROVIDERS: ADMIT Hospitalist; ATTEND Hospitalist
DX: R07.9 Chest pain, unspecified (principal); I16.1 Hypertensive emergency; I10 Essential (primary) hypertension; I42.9 Cardiomyopathy, unspecified; E78.5 Hyperlipidemia, unspecified; Z79.899 Other long term (current) drug therapy; Z88.6 Allergy status to analgesic agent
CPT/HCPCS: 96361; 96374; 96375; 99291; 36415; 93005; 93306; 85379; 83880; 80053 ×2; 83690; 83735 ×2; 84100; 84484; 85025 ×2; 85610; 85730; 71275; 74177; G0378 ×3; J2270; Q9957; Q9967; J1920

== ENCOUNTER 2024-01-04 00:58 | Emergency (ER) | payer OTHER ==
--- NOTE | 2024-01-04 01:21 | ED ---
Chest Pain HPI - General Chief Complaint: Chest Pain Stated Complaint: Irritating tingling in left side of chest Time Seen by Provider: 01/04/24 01:10 Source: patient Mode of arrival: ambulatory Limitations: no limitations - History of Present Illness Initial Comments: 53-year-old male with past medical history of hypertension who [facility] reporting to left-sided chest pain. States that he began having chest pain this evening which radiated to his left arm. He was having numbness and tingling in his arm. He denies any associated shortness of breath, abdominal pain. No weakness in his extremities. No ripping or tearing sensation to his back. Denies any fevers or chills. He was hospitalized 15 days ago for similar complaint. He had a CT of his chest and echo performed. States he supposed to follow-up with cardiology and get a stress test. No other alleviating, precipitating modifying factors - Related Data Home Medications Medication Instructions Recorded Confirmed Ezetimibe/Rosuvastatin Calcium 1 tab PO DAILY 12/19/23 12/19/23 [Ezetimibe/Rosuvastatin Calcium 40-10Mg] Lisinopril-Hctz 20-25 mg 1 tab PO DAILY 12/19/23 12/19/23 [Zestoretic 20-25] Previous Rx's Medication Instructions Recorded Isosorbide Mononitrate ER [Imdur] 30 mg PO DAILY #90 tab 12/21/23 Spironolactone [Aldactone] 25 mg PO DAILY #90 tab 12/21/23 hydrALAZINE HCL [Apresoline] 50 mg PO BID #180 tab 12/21/23 lisinopriL [Zestril] 20 mg PO HS #90 tab 12/21/23 Nitroglycerin Sl Tabs [Nitrostat] 0.4 mg SUBLINGUAL Q5M PRN #25 tab 01/04/24 Allergies Allergy/AdvReac Type Severity Reaction Status Date / Time naproxen [From Aleve] Allergy Unknown Rash/Hives Verified 01/04/24 01:12 tuberculosis vaccine Allergy Unknown Rash/Hives Uncoded 01/04/24 01:12 Review of Systems ROS Statement: Those systems with pertinent positive or pertinent negative responses have been documented in the HPI. ROS Other: All systems not noted in ROS Statement are negative. Past Medical History Past Medical History: Hypertension Additional Past Medical History / Comment(s): hx irregular heart beat, stomach ulcer (90's), psoriasis. History of Any Multi-Drug Resistant Organisms: None Reported Additional Past Surgical History / Comment(s): EGD, ? Surgery for hole in heart. Past Anesthesia/Blood Transfusion Reactions: No Reported Reaction Past Psychological History: No Psychological Hx Reported Smoking Status: Never smoker Past Alcohol Use History: Rare Past Drug Use History: None Reported - Past Family History Mother Family Medical History: Cancer Additional Family Medical History / Comment(s): breast cancer General Exam Limitations: no limitations General appearance: alert, in no apparent distress Head exam: Present: atraumatic, normocephalic, normal inspection Eye exam: Present: normal appearance, PERRL, EOMI. Absent: scleral icterus, conjunctival injection, periorbital swelling ENT exam: Present: normal exam, mucous membranes moist Neck exam: Present: normal inspection. Absent: tenderness, meningismus, lymphadenopathy Respiratory exam: Present: normal lung sounds bilaterally. Absent: respiratory distress, wheezes, rales, rhonchi, stridor Cardiovascular Exam: Present: regular rate, normal rhythm, normal heart sounds. Absent: systolic murmur, diastolic murmur, rubs, gallop, clicks GI/Abdominal exam: Present: soft, normal bowel sounds. Absent: distended, tenderness, guarding, rebound, rigid Extremities exam: Present: normal inspection, full ROM, normal capillary refill. Absent: tenderness, pedal edema, joint swelling, calf tenderness Back exam: Present: normal inspection Neurological exam: Present: alert, oriented X3, CN II-XII intact Psychiatric exam: Present: normal affect, normal mood Skin exam: Present: warm, dry, intact, normal color. Absent: rash Course Vital Signs 01/04/24 01/04/24 01/04/24 01:09 02:02 04:05 Temperature 98 F Pulse Rate 70 67 57 L Respiratory 20 18 18 Rate Blood Pressure 189/94 133/96 163/94 O2 Sat by Pulse 98 95 Oximetry Chest Pain MDM - MDM Was pt. sent in by a medical professional or institution (, PA, COMMISSIONING AGENT, urgent care, hospital, or skilled nursing...) When possible be specific @ -No Did you speak to anyone other than the patient for history (EMS, parent, family, police, friend...)? What history was obtained from this source @ -No Did you review nursing and triage notes (agree or disagree)? Why? @ -I reviewed and agree with nursing and triage notes Were old charts reviewed (outside hosp., previous admission, EMS record, old EKG, old radiological studies, urgent care reports/EKG's, skilled nursing records)? Report findings @ -I reviewed the patient's discharge summary from the Differential Diagnosis (chest pain, altered mental status, abdominal pain women, abdominal pain men, vaginal bleeding, weakness, fever, dyspnea, syncope, headache, dizziness, GI bleed, back pain, seizure, CVA, palpatations, mental health, musculoskeletal)? @ -Differential Chest Pain: Stable Angina, Unstable Angina, STEMI, NSTEMI Aortic Dissection, Pneumothorax, Musculoskeletal, Esophageal Spasm GERD, Cholecystitis, Pancreatitis, Zoster, this is not meant to be an all-inclusive list. EKG interpreted by me (3pts min.). @ -Yes and demonstrates sinus rhythm with a rate of 68. MI interval 178. QRS 101. QTc of 442. No acute ST segment elevations or depressions X-rays interpreted by me (1pt min.). @ -Yes and demonstrates no acute process CT interpreted by me (1pt min.). @ -None done U/S interpreted by me (1pt. min.). @ -None done What testing was considered but not performed or refused? (CT, X-rays, U/S, labs)? Why? @ -None What meds were considered but not given or refused? Why? @ -None Did you discuss the management of the patient with other professionals (professionals i.e. , PA, COMMISSIONING AGENT, lab, RT, psych nurse, social insurance analyst, experimental physicist, teacher, chief customer officer, child support case officer)? Give summary @ -No Was smoking cessation discussed for >3mins.? @ -No Was critical care preformed (if so, how long)? @ -No Were there social determinants of health that impacted care today? How? (Homelessness, low income, unemployed, alcoholism, drug addiction, tr ansportation, low edu. Level, literacy, decrease access to med. care, detention, rehab)? @ -No Was there de-escalation of care discussed even if they declined (Discuss DNR or withdrawal of care, Hospice)? DNR status @ -No What co-morbidities impacted this encounter? (DM, HTN, Smoking, COPD, CAD, Cancer, CVA, ARF, Chemo, Hep., AIDS, mental health diagnosis, sleep apnea, morbid obesity)? @ -None Was patient admitted / discharged? Hospital course, mention meds given and route, prescriptions, significant lab abnormalities, going to OR and other pertinent info. @ -Upon arrival patient was placed into room 4. Thorough history and physical exam was performed. IV access was established. Laboratory studies were conducted. Chest x-ray was performed. I did review the results and discussed them with the patient. Did recommend overnight observation for cardiology evaluation. Patient wants to go home at this time. Patient states he was just hospitalized for the same complaint does not feel that being hospitalized will assist him. He would rather follow-up outpatient with his administration vice president. Patient is instructed to return for any new or worsening symptoms. He was discharged in stable condition Undiagnosed new problem with uncertain prognosis? @ -No Drug Therapy requiring intensive monitoring for toxicity (Heparin, Nitro, Insulin, Cardizem)? @ -No Were any procedures done? @ -No Diagnosis/symptom? @ -Acute chest pain, recurrent chest pain Acute, or Chronic, or Acute on Chronic? @ -Acute Uncomplicated (without systemic symptoms) or Complicated (systemic symptoms)? @ -Complicated Side effects of treatment? @ -No Exacerbation, Progression, or Severe Exacerbation? @ -No Poses a threat to life or bodily function? How? (Chest pain, [place], PA, pneumonia, PE, COPD, DKA, ARF, appy, cholecystitis, CVA, Diverticulitis, Homicidal, Suicidal, threat to staff... and all critical care pts) @ -No Disposition Clinical Impression: Chest pain, Hypertension Disposition: HOME SELF-CARE Condition: Stable Instructions (If sedation given, give patient instructions): Chest Pain (ED) Additional Instructions: Please follow up with the administration vice president - call on Friday to see if you can get a quicker appointment. Take the nitro very sparingly as needed. Follow-up with your primary care doctor and return for any new or worsening symptoms Prescriptions: Nitroglycerin Sl Tabs [Nitrostat] 0.4 mg SUBLINGUAL Q5M PRN #25 tab PRN Reason: Chest Pain Is patient prescribed a controlled substance at d/c from ED?: No Referrals: Kanu Zamora DO [Primary Care Provider] - 1-2 days Time of Disposition: 03:45
[2024-01-04 01:32] VITALS: TEMP 98
[2024-01-04 01:44] LABS: Basophils % (A) 0 %; Eosinophils # (A) 0.2 k/uL (0-0.7); Eosinophils % (A) 3 %; HCT 41.6 % (39.0-53.0); HGB 12.9 gm/dL (13.0-17.5); Lymphocytes # (A) 2.1 k/uL (1.0-4.8); Lymphocytes % (A) 27 %; MCH 24.6 pg (25.0-35.0); MCV 79.4 fL (80.0-100.0); Monocytes # (A) 0.4 k/uL (0-1.0); Monocytes % (A) 5 %; Neutrophils # (A) 4.9 k/uL (1.3-7.7); Neutrophils % (A) 63 %; Platelet Count 254 k/uL (150-450); RBC 5.24 m/uL (4.30-5.90); RDW 15.8 % (11.5-15.5); WBC 7.8 k/uL (3.8-10.6)
[2024-01-04] MEDS: NITROGLYCERIN SL TABS 0.4 MG TAB SUBLINGUAL STA (02:02)
[2024-01-04 02:03] LABS: Partial Thromboplastin Time 26.5 sec (22.0-30.0)
[2024-01-04 02:11] VITALS: RESP 18
[2024-01-04 02:19] LABS: ALT 77 U/L (4-49); AST 44 U/L (17-59); African American GFR (CKD) >90 (>60 ml/min/1.73 sqM); Albumin 4.4 g/dL (3.5-5.0); Alkaline Phosphatase 84 U/L (38-126); Anion Gap 6 mmol/L; Blood Urea Nitrogen 20 mg/dL (9-20); Calcium 9.2 mg/dL (8.4-10.2); Carbon Dioxide 29 mmol/L (22-30); Chloride 105 mmol/L (98-107); Glucose 119 mg/dL (74-99); Lipase 88 U/L (23-300); Non-African American GFR(CKD) 84 (>60 ml/min/1.73 sqM); Potassium 3.9 mmol/L (3.5-5.1); Sodium 140 mmol/L (137-145); Total Bilirubin 0.4 mg/dL (0.2-1.3); Total Protein 7.9 g/dL (6.3-8.2)
--- NOTE | 2024-01-04 03:21 | XR ---
EXAM: XR Chest, 2 Views CLINICAL HISTORY: ITS.REASON XR Reason: Chest Pain TECHNIQUE: Frontal and lateral views of the chest. COMPARISON: No relevant prior studies available. FINDINGS: Lungs: Unremarkable. No consolidation. Pleural space: Unremarkable. No pneumothorax. Heart: Unremarkable. No cardiomegaly. Mediastinum: Unremarkable. Normal mediastinal contour. Bones/joints: Unremarkable. No acute fracture. IMPRESSION: Normal chest x-rays.
[2024-01-04 04:42] VITALS: BP 163/94; PULSE 57
== END 2024-01-04 04:06 | disposition home or self-care (01) ==
LOC: EC 00:58
DX: I10 Essential (primary) hypertension (principal); Z88.7 Allergy status to serum and vaccine; Z88.6 Allergy status to analgesic agent
CPT/HCPCS: 36415; 71046; 80053; 83690; 83735; 84484; 85025; 85610; 85730; 93005; 99285

== ENCOUNTER → 2024-08-06 | Outpatient (CLI) | payer OTHER ==
--- NOTE | 2024-08-06 13:52 | USB ---
Reason for Exam: Clinical finding. Patient History: Mother had breast cancer at or over age 50. Technique: Method: Targeted. Findings: The axilla of the left breast and the retroareolar of the left breast were scanned. Targeted ultrasound subareolar and periareolar left breast including scanning of the left axilla. There is subareolar irregular hypoechoic density in keeping with the patient's gynecomastia seen on mammogram. No suspicious solid or cystic lesion or axillary lymphadenopathy. Overall Assessment: Benign, BI-RAD 2 Management: Clinical Management of the left breast in 1 year. For the painful gynecomastia. Correlate for possible causes in this patient. Results were given to the patient verbally at the time of exam. [facility], , 08/06/2024 1:48 PM. Electronically signed and approved by: Francesca Alva M.D. Radiologist
--- NOTE | 2024-08-06 16:40 | MM ---
Reason for Exam: Clinical finding. Baseline mammogram. Patient History: Mother had breast cancer at or over age 50. Prior Study Comparison: Patient's first Mammogram. Tissue Density: There are scattered areas of fibroglandular density. Findings: Analyzed By CAD. A palpable marker placed over the left nipple. There is flame-shaped subareolar density left greater than right. Findings characteristic of asymmetric gynecomastia. No significant mass, suspicious microcalcification, or other abnormality is seen. Overall Assessment: Incomplete: need additional imaging evaluation, BI-RAD 0 Management: Diagnostic Breast Ultrasound of the left breast. As ordered. [facility], , 08/06/2024 4:38 PM. Electronically signed and approved by: Francesca Alva M.D. Radiologist
== END | disposition home or self-care (01) ==
LOC: RADMAMWWP 13:03
PROVIDERS: ATTEND Family Medicine
DX: N63.0 Unspecified lump in unspecified breast (principal); Z80.3 Family history of malignant neoplasm of breast; R92.323 Mammographic fibroglandular density, bilateral breasts
CPT/HCPCS: 77062; 77066

== ENCOUNTER 2025-01-04 20:24 | Emergency (ER) | payer OTHER ==
[2025-01-04 20:39] VITALS: RESP 18
--- NOTE | 2025-01-04 20:51 | ED ---
Chest Pain HPI - General Source: patient, RN notes reviewed Mode of arrival: ambulatory Limitations: no limitations <Jocelyne Romero - Last Filed: 01/04/25 20:49> <Elena Lopez - Last Filed: 01/05/25 00:41> - General Chief Complaint: Chest Pain Stated Complaint: Chest pain,Sob Time Seen by Provider: 01/04/25 20:49 - History of Present Illness Initial Comments: Quick [id number] male with history of hypertension presenting for chest pain x 1 day. States early this morning he began to have pain in her right arm experience chest pain that feels like heartburn tolerance or worsening in quality. But is worsening in quality. States it feels like something is pressing on his chest when he takes a deep breath. Also endorses right arm pain last night. Denies blood thinners. (Jocelyne Romero) 54-year-old male with history of hypertension and hyperlipidemia presents emergency department for complaint of chest pain described as a pressure that started this morning while he was getting ready for work. Patient states that he was concerned as yesterday he began to develop right arm pain where he visited with his chiropractor with minimal relief in symptoms. When he woke this morning he began to experience substernal chest pressure that is nonradiating. Endorses associated shortness of breath and nausea with no emesis. Denies associated diaphoresis. Denies history of DVT, PE, recent prolonged travel, recent surgeries, hemoptysis, pain or swelling in calves. 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 (Elena Lopez) - Related Data Home Medications Medication Instructions Recorded Confirmed Ezetimibe/Rosuvastatin Calcium 1 tab PO DAILY 12/19/23 12/19/23 [Ezetimibe/Rosuvastatin Calcium 40-10Mg] Lisinopril-Hctz 20-25 mg 1 tab PO DAILY 12/19/23 12/19/23 [Zestoretic 20-25] Previous Rx's Medication Instructions Recorded Isosorbide Mononitrate ER [Imdur] 30 mg PO DAILY #90 tab 12/21/23 Spironolactone [Aldactone] 25 mg PO DAILY #90 tab 12/21/23 hydrALAZINE HCL [Apresoline] 50 mg PO BID #180 tab 12/21/23 lisinopriL [Zestril] 20 mg PO HS #90 tab 12/21/23 Nitroglycerin Sl Tabs [Nitrostat] 0.4 mg SUBLINGUAL Q5M PRN #25 tab 01/04/24 Allergies Allergy/AdvReac Type Severity Reaction Status Date / Time naproxen [From Aleve] Allergy Unknown Rash/Hives Verified 01/04/25 20:39 tuberculosis vaccine Allergy Unknown Rash/Hives Uncoded 01/04/25 20:39 Review of Systems ROS Other: All systems not noted in ROS Statement are negative. <Jocelyne Romero - Last Filed: 01/04/25 20:49> ROS Other: All systems not noted in ROS Statement are negative. <Elena Lopez - Last Filed: 01/05/25 00:41> ROS Statement: Those systems with pertinent positive or pertinent negative responses have been documented in the HPI. Past Medical History Past Medical History: Hypertension Additional Past Medical History / Comment(s): hx irregular heart beat, stomach ulcer (90's), psoriasis. History of Any Multi-Drug Resistant Organisms: None Reported Additional Past Surgical History / Comment(s): EGD, ? Surgery for hole in heart. Past Anesthesia/Blood Transfusion Reactions: No Reported Reaction Past Psychological History: No Psychological Hx Reported Smoking Status: Never smoker Past Alcohol Use History: Rare Past Drug Use History: None Reported - Past Family History Mother Family Medical History: Cancer Additional Family Medical History / Comment(s): breast cancer <Jocelyne Romero - Last Filed: 01/04/25 20:49> General Exam Limitations: no limitations <Jocelyne Romero - Last Filed: 01/04/25 20:49> General appearance: alert, in no apparent distress Eye exam: Present: normal appearance, PERRL, EOMI. Absent: scleral icterus, conjunctival injection, periorbital swelling ENT exam: Present: normal exam, mucous membranes moist Neck exam: Present: normal inspection. Absent: tenderness, meningismus, lymphadenopathy Respiratory exam: Present: normal lung sounds bilaterally. Absent: respiratory distress, wheezes, rales, rhonchi, stridor Cardiovascular Exam: Present: regular rate, normal rhythm, normal heart sounds. Absent: systolic murmur, diastolic murmur, rubs, gallop, clicks GI/Abdominal exam: Present: soft, normal bowel sounds. Absent: distended, tenderness, guarding, rebound, rigid Extremities exam: Present: normal inspection, full ROM, normal capillary refill. Absent: tenderness, pedal edema, joint swelling, calf tenderness Skin exam: Present: warm, dry, intact, normal color. Absent: rash <Elena Lopez - Last Filed: 01/05/25 00:41> - General Exam Comments Initial Comments: Visual Physical Exam Vital signs reviewed General: Well-appearing, nontoxic, no acute distress. Head: Normocephalic, atraumatic Eyes: PERRLA, EOMI ENT: Airway patent Chest: Nonlabored breathing Skin: No visual rash, normal skin tone Neuro: Alert and oriented 3 Musculoskeletal: No gross abnormalities (Jocelyne Romero) Course Vital Signs 01/04/25 01/05/25 20:33 00:17 Temperature 98.8 F 98.6 F Pulse Rate 91 68 Respiratory 18 18 Rate Blood Pressure 147/81 145/89 O2 Sat by Pulse 99 99 Oximetry Chest Pain MDM <Jocelyne Romero - Last Filed: 01/04/25 20:49> <Elena Lopez - Last Filed: 01/05/25 00:41> - MDM I completed the quick note portion of this chart signed Jocelyne Romero PA-C (Jocelyne Romero) Was pt. sent in by a medical professional or institution ([facility], [employer], urgent care, hospital, or correction...) When possible be specific @ -No Did you speak to anyone other than the patient for history (EMS, parent, family, police, friend...)? What history was obtained from this source @ -No Did you review nursing and triage notes (agree or disagree)? Why? @ -I reviewed and agree with nursing and triage notes Were old charts reviewed (outside hosp., previous admission, EMS record, old EKG, old radiological studies, urgent care reports/EKG's, correction records)? Report findings @ -No old charts were reviewed Differential Diagnosis (chest pain, altered mental status, abdominal pain women, abdominal pain men, vaginal bleeding, weakness, fever, dyspnea, syncope, headache, dizziness, GI bleed, back pain, seizure, CVA, palpatations, mental health, musculoskeletal)? @ -Differential Chest Pain: Stable Angina, Unstable Angina, STEMI, NSTEMI Aortic Dissection, Pneumothorax, Musculoskeletal, Esophageal Spasm GERD, Cholecystitis, Pancreatitis, Zoster, this is not meant to be an all-inclusive list. EKG interpreted by me (3pts min.). @ -Completed at 2044 sinus rhythm with a ventricular rate of 78, SD interval 208, QRS 106, QTc 410. X-rays interpreted by me (1pt min.). @ -Chest x-ray no acute cardiopulmonary process or disease. CT interpreted by me (1pt min.). @ -None done U/S interpreted by me (1pt. min.). @ -None done What testing was considered but not performed or refused? (CT, X-rays, U/S, labs)? Why? @ -None What meds were considered but not given or refused? Why? @ -None Did you discuss the management of the patient with other professionals (professionals i.e. , PA, [employer], lab, RT, psych nurse, bilingual social worker, rig site engineer, teacher, chief commercial officer, comp field case manager)? Give summary @ -No Was smoking cessation discussed for >3mins.? @ -No Was critical care preformed (if so, how long)? @ -No Were there social determinants of health that impacted care today? How? (Homelessness, low income, unemployed, alcoholism, drug addiction, transportation, low edu. Level, literacy, decrease access to med. care, [facility], rehab)? @ -No Was there de-escalation of care discussed even if they declined (Discuss DNR or withdrawal of care, Hospice)? DNR status @ -No What co-morbidities impacted this encounter? (DM, HTN, Smoking, COPD, CAD, Cancer, CVA, ARF, Chemo, Hep., AIDS, mental health diagnosis, sleep apnea, morbid obesity)? @ -Hypertension, hyperlipidemia Was patient admitted / discharged? Hospital course, mention meds given and route, prescriptions, significant lab abnormalities, going to OR and other pertinent info. @ -Discharge. 54-year-old male presenting with chest pain. Patient was originally by the emergency room waited was a quick note for laboratory testing was ordered in addition to chest x-ray. Patient's EKG sinus rhythm. On my evaluation the patient is resting comfortably no signs of distress. His initial vitals are stable. Laboratory testing including CBC, CMP, coagulation and D- dimer, troponin within normal. Chest x-ray no acute process. Repeat 3-hour troponin less than 0.012. With the patient's comorbidities including hypertension hyperlipidemia recommend admission for serial cardiac enzymes and cardiology input. Patient has refused stating that he feels comfortable following outpatient with his primary care provider. Patient has verbalized risks and benefits and again has requested discharge. Recommend close follow-up with primary care provider within the next few days for further evaluation and referral to cardiology. Case discussed with Dr. Ross Undiagnosed new problem with uncertain prognosis? @ -No Drug Therapy requiring intensive monitoring for toxicity (Heparin, Nitro, Insulin, Cardizem)? @ -No Were any procedures done? @ -No Diagnosis/symptom? @ -Chest pain Acute, or Chronic, or Acute on Chronic? @ -Acute Uncomplicated (without systemic symptoms) or Complicated (systemic symptoms)? @ -Uncomplicated Side effects of treatment? @ -No Exacerbation, Progression, or Severe Exacerbation? @ -No Poses a threat to life or bodily function? How? (Chest pain, USA, [place], pneumonia, PE, COPD, DKA, ARF, appy, cholecystitis, CVA, Diverticulitis, Homicidal, Suicidal, threat to staff... and all critical care pts) @ -No (Elena Lopez) Disposition <Jocelyne Romero - Last Filed: 01/04/25 20:49> Is patient prescribed a controlled substance at d/c from ED?: No Time of Disposition: 00:07 <Elena Lopez - Last Filed: 01/05/25 00:41> Clinical Impression: Chest pain Disposition: HOME SELF-CARE Condition: Stable Instructions (If sedation given, give patient instructions): Chest Pain (ED) Additional Instructions: Please return to the Emergency Department if symptoms worsen or any other concerns. As discussed, it is important that you follow-up promptly with your primary care provider within the next 1 to 3 days with referral to cardiology. Referrals: Kanu Zamora DO [Primary Care Provider] - 1-2 days
[2025-01-04 21:01] LABS: Basophils % (A) 0 %; Eosinophils # (A) 0.2 k/uL (0-0.7); Eosinophils % (A) 2 %; HCT 39.7 % (39.0-53.0); HGB 12.2 gm/dL (13.0-17.5); Lymphocytes # (A) 1.5 k/uL (1.0-4.8); Lymphocytes % (A) 15 %; MCH 24.4 pg (25.0-35.0); MCHC 30.8 g/dL (31.0-37.0); MCV 79.2 fL (80.0-100.0); Mean Platelet Volume 7.3; Monocytes # (A) 0.4 k/uL (0-1.0); Monocytes % (A) 4 %; Neutrophils # (A) 7.4 k/uL (1.3-7.7); Neutrophils % (A) 77 %; Platelet Count 272 k/uL (150-450); RBC 5.01 m/uL (4.30-5.90); WBC 9.5 k/uL (3.8-10.6)
[2025-01-04 21:16] LABS: ALT 58 U/L (4-49); African American GFR (CKD) >90 (>60 ml/min/1.73 sqM); Albumin 4.4 g/dL (3.5-5.0); Anion Gap 9 mmol/L; Blood Urea Nitrogen 16 mg/dL (9-20); Calcium 8.9 mg/dL (8.4-10.2); Carbon Dioxide 27 mmol/L (22-30); Chloride 98 mmol/L (98-107); Glucose 136 mg/dL (74-99); Non-African American GFR(CKD) >90 (>60 ml/min/1.73 sqM); Sodium 134 mmol/L (137-145); Total Bilirubin 0.8 mg/dL (0.2-1.3); Total Protein 7.6 g/dL (6.3-8.2)
[2025-01-04 21:17] LABS: Partial Thromboplastin Time 26.6 sec (22.0-30.0); Prothrombin Time 11.3 sec (10.0-12.5)
[2025-01-04 21:37] LABS: AST 33 U/L (17-59); Alkaline Phosphatase 61 U/L (38-126); Potassium 4.1 mmol/L (3.5-5.1)
--- NOTE | 2025-01-04 22:02 | XR ---
EXAMINATION TYPE: XR chest 2V DATE OF EXAM: 01/04/2025 9:46 PM COMPARISON: Chest radiographs from 01/04/2024. CLINICAL INDICATION: Male, 54 years old with history of chest pain; [facility] TECHNIQUE: XR chest 2V Frontal and lateral views of the chest. FINDINGS: Lungs/Pleura: There is no evidence of pleural effusion, focal consolidation, or pneumothorax. Pulmonary vascularity: Unremarkable. Heart/mediastinum: Cardiomediastinal silhouette is unremarkable. Musculoskeletal: No acute osseous pathology. IMPRESSION: No acute cardiopulmonary disease/process. [facility], , 01/04/2025 9:59 PM
[2025-01-05 00:19] VITALS: BP 145/89; PULSE 68; TEMP 98.6
== END 2025-01-05 00:19 | disposition home or self-care (01) ==
LOC: EC 20:24
DX: R07.9 Chest pain, unspecified (principal); E78.5 Hyperlipidemia, unspecified; I10 Essential (primary) hypertension; Z88.6 Allergy status to analgesic agent; Z88.8 Allergy status to other drugs, medicaments and biological substances
CPT/HCPCS: 36415; 71046; 80053; 84484; 85025; 85379; 85610; 85730; 93005; 99285

== ENCOUNTER 2025-01-06 18:44 | Observation (INO) | payer OTHER ==
[2025-01-06] MEDS: NITROGLYCERIN SL TABS 0.4 MG TAB SUBLINGUAL STA (19:50)
[2025-01-06] MEDS: PANTOPRAZOLE 40 MG/10 ML VIAL IVP STA (19:50)
[2025-01-06] MEDS: FAMOTIDINE 20 MG/2 ML VIAL IV STA (19:50)
--- NOTE | 2025-01-06 19:57 | XR ---
EXAMINATION TYPE: XR chest 2V DATE OF EXAM: 01/06/2025 7:48 PM COMPARISON: Chest radiographs from 01/04/2025 TECHNIQUE: XR chest 2V Frontal and lateral views of the chest. CLINICAL INDICATION:Male, 54 years old with history of Chest Pain; FINDINGS: Lungs/Pleura: There is no evidence of pleural effusion, focal consolidation, or pneumothorax. Pulmonary vascularity: Unremarkable. Heart/mediastinum: Cardiomediastinal silhouette is unremarkable. Musculoskeletal: Multiple level degenerative disc disease changes seen throughout the spine. IMPRESSION: No acute cardiopulmonary disease/process. [facility], , 01/06/2025 7:54 PM
[2025-01-06 20:05] LABS: Partial Thromboplastin Time 26.9 sec (22.0-30.0); Prothrombin Time 11.2 sec (10.0-12.5)
[2025-01-06 20:07] LABS: Basophils % (A) 0 %; Eosinophils # (A) 0.1 k/uL (0-0.7); Eosinophils % (A) 2 %; HCT 38.8 % (39.0-53.0); HGB 12.4 gm/dL (13.0-17.5); Lymphocytes # (A) 1.5 k/uL (1.0-4.8); Lymphocytes % (A) 17 %; MCH 24.9 pg (25.0-35.0); MCHC 31.8 g/dL (31.0-37.0); MCV 78.3 fL (80.0-100.0); Mean Platelet Volume 7.7; Monocytes # (A) 0.5 k/uL (0-1.0); Monocytes % (A) 6 %; Neutrophils # (A) 6.5 k/uL (1.3-7.7); Neutrophils % (A) 74 %; Platelet Count 291 k/uL (150-450); RBC 4.96 m/uL (4.30-5.90); RDW 14.7 % (11.5-15.5); WBC 8.8 k/uL (3.8-10.6)
[2025-01-06 20:11] LABS: ALT 65 U/L (4-49); AST 37 U/L (17-59); African American GFR (CKD) >90 (>60 ml/min/1.73 sqM); Albumin 4.5 g/dL (3.5-5.0); Alkaline Phosphatase 73 U/L (38-126); Anion Gap 12 mmol/L; Blood Urea Nitrogen 13 mg/dL (9-20); Calcium 9.4 mg/dL (8.4-10.2); Carbon Dioxide 25 mmol/L (22-30); Chloride 98 mmol/L (98-107); Glucose 114 mg/dL (74-99); Lipase 50 U/L (23-300); Magnesium 1.9 mg/dL (1.6-2.3); Non-African American GFR(CKD) >90 (>60 ml/min/1.73 sqM); Sodium 135 mmol/L (137-145); Total Bilirubin 0.9 mg/dL (0.2-1.3); Total Protein 8.1 g/dL (6.3-8.2)
--- NOTE | 2025-01-06 20:49 | ED ---
Chest Pain HPI - General Chief Complaint: Chest Pain Stated Complaint: Chest Pain Time Seen by Provider: 01/06/25 18:55 Source: patient Mode of arrival: ambulatory Limitations: no limitations - History of Present Illness Initial Comments: 54-year-old male with past medical history of hypertension who presents to the emergency department with chest pain. Patient was recently seen and evaluated in the emergency department first for similar complaint. He went through extensive evaluation which demonstrated no laboratory abnormalities. Patient opted follow-up outpatient for his symptoms. The patient reports that his symptoms did go away yesterday however returned today. Reporting to intense epigastric sharp stabbing pain. He tried to take some reflux medication without any improvement in his symptoms. He denies history of coronary disease. No associated shortness of breath. He did take Aspirin at home before coming in. Does admit to nausea without vomiting. Denies fevers, chills or cough. No other alleviating, precipitating and modifying factors - Related Data Home Medications Medication Instructions Recorded Confirmed Ezetimibe/Rosuvastatin Calcium 0.5 tab PO HS 12/19/23 01/06/25 [Ezetimibe/Rosuvastatin Calcium 40-10Mg] Lisinopril-Hctz 20-25 mg 1 tab PO DAILY 12/19/23 01/06/25 [Zestoretic 20-25] Aspirin EC [Ecotrin Low Dose] 162 mg PO ONCE PRN 01/06/25 01/06/25 Eplerenone 25 mg PO DAILY 01/06/25 01/06/25 Omeprazole Magnesium [PriLOSEC OTC] 20 mg PO DAILY 01/06/25 01/06/25 Previous Rx's Medication Instructions Recorded Isosorbide Mononitrate ER [Imdur] 30 mg PO DAILY #90 tab 12/21/23 hydrALAZINE HCL [Apresoline] 50 mg PO BID #180 tab 12/21/23 lisinopriL [Zestril] 20 mg PO HS #90 tab 12/21/23 Nitroglycerin Sl Tabs [Nitrostat] 0.4 mg SUBLINGUAL Q5M PRN #25 tab 01/04/24 Pantoprazole [Protonix] 40 mg PO AC-BRKFST #30 tab 01/07/25 Allergies Allergy/AdvReac Type Severity Reaction Status Date / Time naproxen [From Aleve] Allergy Unknown Rash/Hives Verified 01/06/25 18:53 tuberculosis vaccine Allergy Unknown Rash/Hives Uncoded 01/06/25 18:53 Review of Systems ROS Statement: Those systems with pertinent positive or pertinent negative responses have been documented in the HPI. ROS Other: All systems not noted in ROS Statement are negative. Past Medical History Past Medical History: Hypertension Additional Past Medical History / Comment(s): hx irregular heart beat, stomach ulcer (90's), psoriasis. History of Any Multi-Drug Resistant Organisms: None Reported Additional Past Surgical History / Comment(s): EGD, ? Surgery for hole in heart. Past Anesthesia/Blood Transfusion Reactions: No Reported Reaction Past Psychological History: No Psychological Hx Reported Smoking Status: Never smoker Past Alcohol Use History: Rare Past Drug Use History: None Reported - Past Family History Mother Family Medical History: Cancer Additional Family Medical History / Comment(s): breast cancer General Exam Limitations: no limitations General appearance: alert, in no apparent distress Head exam: Present: atraumatic, normocephalic, normal inspection Eye exam: Present: normal appearance, PERRL, EOMI. Absent: scleral icterus, conjunctival injection, periorbital swelling ENT exam: Present: normal exam, mucous membranes moist Neck exam: Present: normal inspection. Absent: tenderness, meningismus, lymphadenopathy Respiratory exam: Present: normal lung sounds bilaterally. Absent: respiratory distress, wheezes, rales, rhonchi, stridor Cardiovascular Exam: Present: regular rate, normal rhythm, normal heart sounds. Absent: systolic murmur, diastolic murmur, rubs, gallop, clicks GI/Abdominal exam: Present: soft, normal bowel sounds. Absent: distended, tenderness, guarding, rebound, rigid Extremities exam: Present: normal inspection, full ROM, normal capillary refill. Absent: tenderness, pedal edema, joint swelling, calf tenderness Back exam: Present: normal inspection Neurological exam: Present: alert, oriented X3, CN II-XII intact Psychiatric exam: Present: normal affect, normal mood Skin exam: Present: warm, dry, intact, normal color. Absent: rash Course Vital Signs 01/06/25 01/06/25 01/06/25 18:51 19:19 19:54 Temperature 98.1 F Pulse Rate 92 80 81 Respiratory 20 16 20 Rate Blood Pressure 151/91 165/101 132/81 O2 Sat by Pulse 100 Oximetry 04/03/25 04/03/25 22:01 23:15 Temperature Pulse Rate 68 92 Respiratory 16 12 Rate Blood Pressure 139/87 130/97 O2 Sat by Pulse Oximetry Chest Pain MDM - MDM Was pt. sent in by a medical professional or institution (, [facility], [employer], urgent care, hospital, or senior care...) When possible be specific @ -No Did you speak to anyone other than the patient for history (EMS, parent, family, police, friend...)? What history was obtained from this source @ -Spoke with the patient's for history Did you review nursing and triage notes (agree or disagree)? Why? @ -I reviewed and agree with nursing and triage notes Were old charts reviewed (outside hosp., previous admission, EMS record, old EKG, old radiological studies, urgent care reports/EKG's, senior care records)? Report findings @ -I reviewed the chart from 3 days ago when the patient was seen in the emergency department for the same complaint Differential Diagnosis (chest pain, altered mental status, abdominal pain women, abdominal pain men, vaginal bleeding, weakness, fever, dyspnea, syncope, headache, dizziness, GI bleed, back pain, seizure, CVA, palpatations, mental health, musculoskeletal)? @ -Differential Abdominal Pain Men: Appendicitis, cholecystitis, diverticulosis, ischemic bowel, pancreatitis, hepatitis, UTI, gastroenteritis, AAA, incarcerated hernia, bowel obstruction, constipation, inflammatory bowel, hepatitis, peptic ulcer disease, splenic infarction, perforated viscus, testicular torsion, this is not meant to be an all-inclusive list Differential Chest Pain: Stable Angina, Unstable Angina, STEMI, NSTEMI Aortic Dissection, Pneumothorax, Musculoskeletal, Esophageal Spasm GERD, Cholecystitis, Pancreatitis, Zoster, this is not meant to be an all-inclusive list. EKG interpreted by me (3pts min.). @ -Yes and demonstrates sinus rhythm with a rate of 91. Parable 200. QRS 101. QTc of 411. Hyperacute T waves in the inferior leads however there is no ST segment elevation consistent with STEMI. No reciprocal changes Repeat EKG done at 1938 demonstrates sinus rhythm with a rate of 81. FL interval 216. QRS 106. QTc of 418. No acute ST segment elevations X-rays interpreted by me (1pt min.). @ -yes which demonstrates no acute process CT interpreted by me (1pt min.). @ -None done U/S interpreted by me (1pt. min.). @ -Yes which demonstrates no acute process What testing was considered but not performed or refused? (CT, X-rays, U/S, labs)? Why? @ -None What meds were considered but not given or refused? Why? @ -None Did you discuss the management of the patient with other professionals (professionals i.e. , PA, [employer], lab, RT, psych nurse, social work coordinator, supervisor enrobing, teacher, payroll officer, employment case manager)? Give summary @ -Spoke with Dr. Yadav for the admission Was smoking cessation discussed for >3mins.? @ -No Was critical care preformed (if so, how long)? @ -No Were there social determinants of health that impacted care today? How? (Homelessness, low income, unemployed, alcoholism, drug addiction, transportation, low edu. Level, literacy, decrease access to med. care, custodial, rehab)? @ -No Was there de-escalation of care discussed even if they declined (Discuss DNR or withdrawal of care, Hospice)? DNR status @ -No What co-morbidities impacted this encounter? (DM, HTN, Smoking, COPD, CAD, Cancer, CVA, ARF, Chemo, Hep., AIDS, mental health diagnosis, sleep apnea, mor bid obesity)? @ -Hypertension, hyperlipidemia Was patient admitted / discharged? Hospital course, mention meds given and route, prescriptions, significant lab abnormalities, going to OR and other per tinent info. @ -Upon arrival patient seen and evaluated in bed 5. Thorough history and physical exam was performed. IV was established. Laboratory studies are conducted. Patient is having some active pain and therefore 2 EKGs were completed. Laboratory studies were conducted. I did give him a nitro which he states did help his pain. He is also given Pepcid. Patient does have improvement in his pain. I recommended admission which the patient was agreeable. Spoke with Dr. Yadav for the admission Undiagnosed new problem with uncertain prognosis? @ -No Drug Therapy requiring intensive monitoring for toxicity (Heparin, Nitro, Insulin, Cardizem)? @ -No Were any procedures done? @ -No Diagnosis/symptom? @ -Acute chest pain Acute, or Chronic, or Acute on Chronic? @ -Acute Uncomplicated (without systemic symptoms) or Complicated (systemic symptoms)? @ -Complicated Side effects of treatment? @ -No Exacerbation, Progression, or Severe Exacerbation? @ -No Poses a threat to life or bodily function? How? (Chest pain, USA, [place], pneumonia, PE, COPD, DKA, ARF, appy, cholecystitis, CVA, Diverticulitis, Homicidal, Suicidal, threat to staff... and all critical care pts) @ -No Disposition Clinical Impression: Chest pain Disposition: ADMITTED IP TO THIS [facility] Condition: Serious Is patient prescribed a controlled substance at d/c from ED?: No Time of Disposition: 20:50 Decision to Admit Reason: Admit from EC Decision Date: 01/06/25 Decision Time: 20:50
[2025-01-06] MEDS ORDERED: NALOXONE 0.4 MG/ML 1 ML VIAL IV PRN (20:51)
[2025-01-06] MEDS ORDERED: ASPIRIN 81 MG PO PRN (20:58)
[2025-01-06] MEDS ORDERED: ATORVASTATIN 10 MG TAB PO SCH (21:30)
[2025-01-06] MEDS: EZETIMIBE 10 MG TAB PO SCH (21:57)
[2025-01-06] MEDS: ATORVASTATIN 40 MG TAB PO SCH (21:58)
[2025-01-06] MEDS: lisinopriL 20 MG TAB PO SCH (21:59)
[2025-01-06] MEDS: hydrALAZINE HCL 50 MG TAB PO SCH (21:59)
--- NOTE | 2025-01-06 23:18 | US ---
EXAMINATION TYPE: US gallbladder DATE OF EXAM: 01/06/2025 COMPARISON: CT 2023 CLINICAL INDICATION: Male, 54 years old with history of epigastric pain; TECHNIQUE: Grayscale and color Doppler imaging of the right upper quadrant was performed. FINDINGS: EXAM MEASUREMENTS: Liver Length: 16.6 cm Gallbladder Wall: 0.2 cm CBD: 0.3 cm Right Kidney: 11.6 x 5.0 x 5.0 cm Pancreas: obscured by overlying midline bowel gas Liver: 1.0cm cyst left lobe, mildly course echotexture Gallbladder: wnl Evidence for sonographic Enriquez's sign: no CBD: visualized portions wnl, limited by overlying bowel gas Right Kidney: visualized portions wnl, limited by rib shadowing and overlying bowel gas Pancreas is obscured by overlying bowel gas. Simple 1 cm left hepatic lobe cyst. Mild coarsened liver echotexture. Noncirrhotic morphology. Gallbladder demonstrates no stones, wall thickening or surroun ding fluid. Negative sonographic Enriquez sign. Visualized portions of the common bile duct are within normal limits. Visualized portions of the right kidney demonstrate no hydronephrosis, shadowing calcu jarrod, or solid mass. IMPRESSION: 1. No ultrasound evidence for an acute process. 2. Simple left hepatic lobe 1 cm cyst. 3. Mild nonspecific coarsening echotexture to the liver which can be seen with hepatocellular disease . [facility], , 01/06/2025 11:15 PM
[2025-01-07 08:02] VITALS: BP 117/75; PULSE 69; RESP 16; TEMP 98.3
[2025-01-07 08:36] LABS: Blood Urea Nitrogen 11.8 mg/dL (9.0-27.0); Carbon Dioxide 26.4 mmol/L (21.6-31.8); Chloride 99 mmol/L (96-109); Glucose 103 mg/dL (70-110); Potassium 3.9 mmol/L (3.5-5.5); Sodium 136 mmol/L (135-145)
[2025-01-07 08:42] LABS: Basophils # (A) 0.02 X 10*3/uL (0.00-0.10); Basophils % (A) 0.2 %; Eosinophils # (A) 0.08 X 10*3/uL (0.04-0.35); Eosinophils % (A) 0.9 %; HCT 36.9 % (39.6-50.0); HGB 11.7 g/dL (13.0-17.0); Lymphocytes # (A) 1.81 X 10*3/uL (0.90-5.00); Lymphocytes % (A) 20.9 %; MCH 24.6 pg (27.0-32.0); MCHC 31.7 g/dL (32.0-37.0); MCV 77.7 FL (80.0-97.0); Mean Platelet Volume 10.7 FL (9.5-12.2); Monocytes # (A) 0.96 X 10*3/uL (0.20-1.00); Monocytes % (A) 11.1 %; NRBC Per 100 WBC 0 X 10*3/uL (0.00-0.01); Neutrophils # (A) 5.75 X 10*3/uL (1.80-7.70); Neutrophils % (A) 66.6 %; Platelet Count 340 X 10*3/uL (140-440); RBC 4.75 X 10*6/uL (4.40-5.60); RDW 15.2 % (11.5-14.5); WBC 8.65 X 10*3/uL (4.50-10.00)
[2025-01-07] MEDS: SPIRONOLACTONE 25 MG TAB PO SCH (09:30)
[2025-01-07] MEDS: ISOSORBIDE MONONITRATE ER 30 MG TAB.ER.24H PO SCH (09:31)
[2025-01-07] MEDS: LISINOPRIL-HCTZ 20-25 MG 1 EACH TAB PO SCH (09:31)
[2025-01-07] MEDS: FAMOTIDINE 20 MG/2 ML VIAL IV SCH (09:31)
[2025-01-07] MEDS: PANTOPRAZOLE 40 MG/10 ML VIAL IV SCH (09:55)
[2025-01-07] MEDS: IBUPROFEN 400 MG TAB PO STA (09:56)
--- NOTE | 2025-01-07 11:06 | P.CRDCN ---
History of Present Illness Consult date: 01/07/25 Consult reason: chest pain History of present illness: This is a 54-year-old male patient of Dr. Aguilera with past medical history of hypertension, dyslipidemia. We have been asked to evaluate the patient for chest pain. Patient states that he developed chest pain in the mid chest area with shortness of breath. Chest pain started on Friday after putting chairs up in the rafters. He states he first developed right arm pain which he thought w as a pulled muscle. He went to the chiropractor but did not feel right. He states he had some shortness of breath with it and felt like it worsened since Friday. Is have chest wall tenderness. Patient has ambulated and ran in the hallway with Dr. Clemons. He initially had a slight amount of pain but now he states the pain is 45/10 and is just irritating. Blood pressure 117/75, heart rate 69, pulse ox 98% on room air. Patient is a non-smoker. -EKG: Sinus rhythm with no acute ST-T wave changes. -Chest x-ray: No acute process. -Laboratory studies: WBC 8.6, hemoglobin 9.7, electrolytes and renal function are normal. Troponin negative x 3. -Home cardiac medications: Aspirin 81 mg daily, Zetia/rosuvastatin 40-10 mg half tablet at bedtime, hydralazine 50 mg twice daily, isosorbide mononitrate 30 mg daily, lisinopril 20 mg at bedtime, lisinopril hydrochlorothiazide 20-25 mg daily, Nitrostat. -Echocardiogram performed at [facility] 12/19/2023: EF 45 to 50% with global hypokinesia. Dilated LV. Overall technically difficult study. Review Of Systems: At the time of my exam: CONSTITUTIONAL: Denies fever or chills. HEENT: Denies blurred vision, vision changes, or eye pain. Denies hemoptysis CARDIOVASCULAR: Denies chest pain. Denies orthopnea. Denies PND. Denies palpitations RESPIRATORY: Denies shortness of breath. GASTROINTESTINAL: Denies abdominal pain. Denies nausea or vomiting. HEMATOLOGIC: Denies bleeding disorders. GENITOURINARY: Denies any blood in urine. SKIN: Denies puritis. Denies rash. Physical examination: Gen: This is a 54-year-old black male in no acute distress. VS: reviewed HEENT: Head is atraumatic, normocephalic. Pupils equal, round. Sclerae is anicteric. NECK: Supple. No JVD. LUNGS: Clear to auscultation. No wheezes or rhonchi. No intercostal retractions. HEART: Regular rate and rhythm. No murmur. ABDOMEN: Soft No tenderness. EXTREMITIES: No pedal edema. No calf tenderness. NEUROLOGICAL: Patient is awake, alert and oriented x3. Assessment: Atypical chest pain, acute coronary syndrome ruled out Musculoskeletal chest pain Hypertension Dyslipidemia Obesity with BMI of 36 Plan: Continue patient's home cardiac medications Patient is cleared for discharge from cardiology and has been scheduled for Cardiolite stress test on 01/12 at 9:45 AM in the office. Thank you kindly for this consultation. Nurse practitioner note has been reviewed, I agree with documented findings and plan of care. Patient was seen and examined. 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 History of Any Multi-Drug Resistant Organisms: None Reported Additional Past Surgical History / Comment(s): EGD, ? Surgery for hole in heart when pt was younger. Past Anesthesia/Blood Transfusion Reactions: No Reported Reaction Past Psychological History: No Psychological Hx Reported Smoking Status: Never smoker Past Alcohol Use History: Rare Past Drug Use History: None Reported - Past Family History Mother Family Medical History: Cancer Additional Family Medical History / Comment(s): breast cancer Medications and Allergies Home Medications Medication Instructions Recorded Confirmed Type Ezetimibe/Rosuvastatin Calcium 0.5 tab PO HS 12/19/23 01/06/25 History [Ezetimibe/Rosuvastatin Calcium 40-10Mg] Lisinopril-Hctz 20-25 mg 1 tab PO DAILY 12/19/23 01/06/25 History [Zestoretic 20-25] Isosorbide Mononitrate ER [Imdur] 30 mg PO DAILY #90 tab 12/21/23 01/06/25 Rx hydrALAZINE HCL [Apresoline] 50 mg PO BID #180 tab 12/21/23 01/06/25 Rx lisinopriL [Zestril] 20 mg PO HS #90 tab 12/21/23 01/06/25 Rx Nitroglycerin Sl Tabs [Nitrostat] 0.4 mg SUBLINGUAL Q5M PRN #25 tab 01/04/24 01/06/25 Rx Aspirin EC [Ecotrin Low Dose] 162 mg PO ONCE PRN 01/06/25 01/06/25 History Eplerenone 25 mg PO DAILY 01/06/25 01/06/25 History Omeprazole Magnesium [PriLOSEC OTC] 20 mg PO DAILY 01/06/25 01/06/25 History Allergies Allergy/AdvReac Type Severity Reaction Status Date / Time naproxen [From Aleve] Allergy Unknown Rash/Hives Verified 01/06/25 18:53 tuberculosis vaccine Allergy Unknown Rash/Hives Uncoded 01/06/25 18:53 Physical Exam Vitals: Vital Signs Temp Pulse Pulse Resp BP BP Pulse Ox 01/07/25 07:00 98.3 F 69 16 117/75 98 01/07/25 00:17 98.6 F 88 15 133/81 100 01/06/25 23:15 92 12 130/97 01/06/25 22:01 68 16 139/87 01/06/25 19:54 81 20 132/81 01/06/25 19:19 80 16 165/101 01/06/25 18:51 98.1 F 92 20 151/91 100 Intake and Output 01/06/25 01/07/25 01/07/25 22:59 06:59 14:59 Other: # Voids 2 Weight 114.305 kg Results 01/07/25 05:32 01/07/25 05:28 Cardiac Enzymes 01/06/25 01/06/25 01/06/25 Range/Units 19:30 19:30 22:31 AST 37 (17-59) U/L Troponin I <0.012 <0.012 (0.000-0.034) ng/mL 01/07/25 Range/Units 00:29 AST (17-59) U/L Troponin I <0.012 (0.000-0.034) ng/mL Coagulation 01/06/25 Range/Units 19:30 PT 11.2 (10.0-12.5) sec APTT 26.9 (22.0-30.0) sec CBC 01/06/25 01/07/25 Range/Units 19:30 05:32 WBC 8.8 8.65 (3.8-10.6) k/uL RBC 4.96 4.75 (4.30-5.90) m/uL Hgb 12.4 L 11.7 L (13.0-17.5) gm/dL Hct 38.8 L 36.9 L (39.0-53.0) % Plt Count 291 340 (150-450) k/uL Comprehensive Metabolic Panel 01/06/25 01/07/25 Range/Units 19:30 05:28 Sodium 135 L 136 (137-145) mmol/L Potassium 4.0 3.9 (3.5-5.1) mmol/L Chloride 98 99 (98-107) mmol/L Carbon Dioxide 25 26.4 (22-30) mmol/L BUN 13 11.8 (9-20) mg/dL Creatinine 0.93 1.0 (0.66-1.25) mg/dL Glucose 114 H 103 (74-99) mg/dL Calcium 9.4 9.0 (8.4-10.2) mg/dL AST 37 (17-59) U/L ALT 65 H (4-49) U/L Alkaline Phosphatase 73 (38-126) U/L Total Protein 8.1 (6.3-8.2) g/dL Albumin 4.5 (3.5-5.0) g/dL Current Medications Generic Name Dose Route Start Last Admin Trade Name Freq PRN Reason Stop Dose Admin Aspirin 162 mg 01/06/25 20:58 Aspirin 81 Mg PO 01/16/25 20:57 ONCE PRN CHEST PAIN Atorvastatin Calcium 40 mg 01/06/25 21:30 01/06/25 21:58 Atorvastatin 40 Mg Tab PO Not Given HS CRYSTAL Ezetimibe 10 mg 01/06/25 21:30 01/06/25 21:57 Ezetimibe 10 Mg Tab PO Not Given HS CRYSTAL Famotidine 20 mg 01/07/25 08:00 Famotidine 20 Mg/2 Ml Vial IV Q12H CRYSTAL Lisinopril/HCTZ 1 each 01/07/25 09:00 Lisinopril-Hctz 20-25 Mg 1 Each Tab PO DAILY CRYSTAL Hydralazine HCl 50 mg 01/06/25 21:15 01/06/25 21:59 Hydralazine Hcl 50 Mg Tab PO 50 mg BID CRYSTAL Administration Isosorbide Mononitrate 30 mg 01/07/25 09:00 Isosorbide Mononitrate Er 30 Mg Tab.Er.24h PO DAILY CRYSTAL Lisinopril 20 mg 01/06/25 21:00 01/06/25 21:59 Lisinopril 20 Mg Tab PO 20 mg HS CRYSTAL Administration Naloxone HCl 0.2 mg 01/06/25 20:51 Naloxone 0.4 Mg/Ml 1 Ml Vial IV Q2M PRN Opioid Reversal Pantoprazole Sodium 40 mg 01/07/25 09:00 Pantoprazole 40 Mg/10 Ml Vial IV DAILY CRYSTAL Spironolactone 25 mg 01/07/25 09:00 Spironolactone 25 Mg Tab PO BID CRYSTAL Intake and Output 01/06/25 01/07/25 01/07/25 22:59 06:59 14:59 Other: # Voids 2 Weight 114.305 kg 01/07/25 05:32 01/07/25 05:28
--- NOTE | 2025-01-07 21:50 | HP ---
HISTORY AND PHYSICAL AND DC SUMMARY CHIEF COMPLAINT: Chest pain. HISTORY OF PRESENT ILLNESS: This is a 54-year-old gentleman with a past medical history of hypertension and hyperlipidemia, who was admitted with chest pain. The pain was in the center part of the chest and troponins were negative. Cardiology saw the patient, recommending outpatient stress test at this time. There is no history of any fever, rigors, or chills. PAST MEDICAL HISTORY: Hypertension and hyperlipidemia. Rest of history and rest of the chart is also reviewed. HOME MEDICATIONS: Reviewed and include omeprazole. Dose and rest of medications reviewed. ALLERGIES: Naprosyn. FAMILY HISTORY: History of breast cancer in the family. SOCIAL HISTORY: No history of smoking or alcohol. 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 REVIEW OF SYSTEMS: A 14-point review of systems is negative except as mentioned earlier. PHYSICAL EXAMINATION: VITAL SIGNS: Pulse is 69, blood pressure 117/74, respirations 16. HEENT: Conjunctivae normal. NECK: No JVD. CARDIOVASCULAR: S1, S2. RESPIRATIONS: Clear to auscultation. ABDOMEN: Soft. LEGS: No edema. NERVOUS SYSTEM: Nonfocal. LABORATORY DATA: Hemoglobin 11.2. Rest of the labs are noted. ASSESSMENT: 1. Chest pain, possible unstable angina. 2. Mild microcytic anemia. 3. Hypertension. 4. Hyperlipidemia. RECOMMENDATIONS AND DISCUSSION: This 54-year-old gentleman presented with multiple complex medical issues. At this time, I would recommend to continue with the current symptomatic treatment. Otherwise, recommended close followup with the primary physician and cardiology outpatient stress and also recommend further workup of anemia with primary physician, Dr. Alva's office. [id number] / BERTN: [id number] / MTDD
[2025-01-08] MEDS ORDERED: PANTOPRAZOLE 40 MG TABLET PO SCH (07:30)
--- NOTE | 2025-01-09 13:44 | P.DS ---
Providers Date of admission: 01/06/25 20:58 Expected date of discharge: 01/07/25 Attending physician: Haresh Yadav MD Consults: 01/06/25 20:51 Consult Physician Urgent Consulting Provider: [facility] Consult Reason/Comments: acute chest pain Do you want consulting provider notified?: Yes Primary care physician: Kanu Zamora [facility] Course: Final diagnosis Chest pain, ruled out ACS, possible unstable angina Mild microcytic anemia, recommend outpatient follow-up with hematology and GI Hypertension Hyperlipidemia Previous myocardial infarction Obesity with a BMI 36.2 GI prophylaxis DVT prophylaxis Full code Discharge disposition Patient is being discharged in a stable condition with guarded prognosis to home. Patient will follow-up with Dr. Zamora in the outpatient setting upon discharge. Patient is to continue with current medications and outpatient follow-up with cardiology for outpatient stress test on 01/12/2025 as scheduled. Total time taken is greater than 35 minutes. Hospital course This is a 54-year-old male who was recently admitted with chest pain, possible unstable angina. Evaluated by cardiology and has a follow-up appointment on January 12 in the outpatient setting for stress testing recommending keeping this appointment and has cleared the patient for discharge home today. Patient also with mild anemia would recommend hematology follow-up outpatient and will place referrals as well as possible need for endoscopic intervention with GI and/or general surgery. Please refer to cardiology notes for further HPI. Currently no reports of chest pain, shortness of breath, or palpitations. Patient is afebrile. No reports of nausea or vomiting and patient is tolerating diet. Patient will be discharged home today. Guarded prognosis Physical exam: Gen: This is a 54-year-old male who is awake, alert and oriented x 3, well- developed, obese HEENT: Head is atraumatic, normocephalic. Pupils equal, round. Sclerae is anict federico. NECK: Supple. No JVD. No lymphadenopathy. No thyromegaly. LUNGS: Diminished breath sounds bilaterally otherwise clear to auscultation. No wheezes or rhonchi. No intercostal retractions. HEART: S1, S2 are muffled ABDOMEN: Soft. Obese. Bowel sounds are present. No masses. No tenderness. EXTREMITIES: No pedal edema. No calf tenderness. NEUROLOGICAL: Patient is awake, alert and oriented x3. Cranial nerves 2 through 12 are grossly intact. Please refer to medication reconciliation sheet for a list of medications. The impression and plan of care has been dictated by Xenia Simon, Nurse Practitioner as directed. Dr. Reno MD I have performed a history and examination and MDM of this patient, discussed the same with the dictator, and agree with the dictator's assessment and plan as written ,documented as a scribe. Based on total visit time, I have performed more than 50% of the visit. Patient Condition at Discharge: Fair Plan - Discharge Summary Discharge Rx Participant: No New Discharge Prescriptions: New Pantoprazole [Protonix] 40 mg PO AC-BRKFST #30 tab Continue Lisinopril-Hctz 20-25 mg [Zestoretic 20-25] 1 tab PO DAILY Ezetimibe/Rosuvastatin Calcium [Ezetimibe/Rosuvastatin Calcium 40-10Mg] 0.5 tab PO HS lisinopriL [Zestril] 20 mg PO HS #90 tab Omeprazole Magnesium [PriLOSEC OTC] 20 mg PO DAILY hydrALAZINE HCL [Apresoline] 50 mg PO BID #180 tab Isosorbide Mononitrate ER [Imdur] 30 mg PO DAILY #90 tab Nitroglycerin Sl Tabs [Nitrostat] 0.4 mg SUBLINGUAL Q5M PRN #25 tab PRN Reason: Chest Pain Eplerenone 25 mg PO DAILY Aspirin EC [Ecotrin Low Dose] 162 mg PO ONCE PRN PRN Reason: Chest Pain Discharge Medication List Ezetimibe/Rosuvastatin Calcium [Ezetimibe/Rosuvastatin Calcium 40-10Mg] 0.5 tab PO HS 12/19/23 [History] Lisinopril-Hctz 20-25 mg [Zestoretic 20-25] 1 tab PO DAILY 12/19/23 [History] Isosorbide Mononitrate ER [Imdur] 30 mg PO DAILY #90 tab 12/21/23 [Rx] hydrALAZINE HCL [Apresoline] 50 mg PO BID #180 tab 12/21/23 [Rx] lisinopriL [Zestril] 20 mg PO HS #90 tab 12/21/23 [Rx] Nitroglycerin Sl Tabs [Nitrostat] 0.4 mg SUBLINGUAL Q5M PRN #25 tab 01/04/24 [Rx] Aspirin EC [Ecotrin Low Dose] 162 mg PO ONCE PRN 01/06/25 [History] Eplerenone 25 mg PO DAILY 01/06/25 [History] Omeprazole Magnesium [PriLOSEC OTC] 20 mg PO DAILY 01/06/25 [History] Pantoprazole [Protonix] 40 mg PO AC-BRKFST #30 tab 01/07/25 [Rx] Follow up Appointment(s)/Referral(s): Javan Aguilera MD [STAFF PHYSICIAN] - 01/12/25 9:45 am (stress test at cardiologys office this day please take all your morning meds before arriving and please make sure you make a follow up appointment with dr Aguilera to read your stress test results 1 to 2 weeks after test ) Kanu Zamora DO [Primary Care Provider] - 1-2 days (please call for an appointment ) Ambulatory/Diagnostic Orders: Complete Blood Count w/diff [LAB.AMB] Time Frame: 3 Days, Location: None Selected Patient Instructions/Handouts: Chest Pain (DC) Activity/Diet/Wound Care/Special Instructions: Activity until follow-up Follow-up with primary care provider on discharge Keep appointment for your outpatient scheduled stress testing on 01/12/2025 Continue taking medications as prescribed If having any worsening symptoms or chest pain or shortness of breath call 911 and/or nearest ER Discharge Disposition: HOME SELF-CARE
== END 2025-01-07 14:11 | disposition home or self-care (01) ==
LOC: EC 18:44 → 6NMEDSUR 20:58
PROVIDERS: ADMIT Internal Medicine; ATTEND Internal Medicine
DX: R07.89 Other chest pain (principal); D50.9 Iron deficiency anemia, unspecified; I10 Essential (primary) hypertension; E78.5 Hyperlipidemia, unspecified; I25.2 Old myocardial infarction; E66.9 Obesity, unspecified; Z68.36 Body mass index [BMI] 36.0-36.9, adult; Z79.82 Long term (current) use of aspirin; Z79.899 Other long term (current) drug therapy; Z88.6 Allergy status to analgesic agent
CPT/HCPCS: 96376; 96374 ×2; 96375; 99285; 36415; 93005; 80053; 80048; 83690; 83735; 84484 ×2; 85025 ×2; 85610; 85730; 71046; 76705; G0378 ×2; J3490 ×2; J2470 ×2

== ENCOUNTER 2025-02-08 06:06 | Day surgery (SDC) | payer OTHER ==
[~2025-02-08 06:06] MED LIST: ALPRAZolam 0.25 MG TAB PO PRN; ALPRAZolam 0.5 MG TAB PO PRN; NITROGLYCERIN SL TABS 0.4 MG TAB SUBLINGUAL PRN
[2025-02-08] MEDS: IV FLUID CONTINUATION 1,000 ML IV ONE (06:11)
[2025-02-08] MEDS: SODIUM CHLORIDE 0.9% 1,000 ML in EMPTY BAG 1 BAG IV SCH ×2 (06:23→10:31)
[2025-02-08] MEDS: MIDAZOLAM 2 MG/2 ML VIAL IVP ONE ×2 (07:23→07:43)
[2025-02-08] MEDS: LIDOCAINE 1% INJ 10MG/ML (20 ML MDV) SQ ONE (07:25)
[2025-02-08] MEDS: VERAPAMIL SYRINGE (5 MG/10 ML) INTRAARTER ONE (07:26)
[2025-02-08] MEDS: HEPARIN SODIUM,PORCINE (1 ML) 2,500 UNIT in SODIUM CHLORIDE 0.9% 250 ML IRRIGATION PRN (07:33)
[2025-02-08] MEDS: HEPARIN SODIUM,PORCINE 10,000 UNIT in SODIUM CHLORIDE 0.9% 1,000 ML IRRIGATION PRN (07:33)
[2025-02-08] MEDS: HEPARIN SODIUM 1,000 UN/ML (10ML VL) IV ONE (07:33)
[2025-02-08] MEDS: fentaNYL (PF) 50 MCG/ML 2 ML AMP IVP ONE (07:43)
[2025-02-08] MEDS: PRASUGREL 10 MG TAB PO ONE (07:54)
[2025-02-08] MEDS: IOPAMIDOL-370 100ML BTL INJ ONE ×2 (08:01→08:09)
[2025-02-08] MEDS: NITROGLYCERIN 1000MCG/10ML SYRINGE INTRACORON ONE (08:07)
[2025-02-08] MEDS ORDERED: NITROGLYCERIN SL TABS 0.4 MG TAB SUBLINGUAL PRN ×2 (08:11→08:12)
[2025-02-08] MEDS ORDERED: RX INFO: IV CONTRAST WAS GIVEN 1 EACH MISC MISCELLANE PRN (08:12)
[2025-02-08] MEDS ORDERED: ATROPINE SULFATE 0.1 MG/ML 10ML SYRINGE IV PRN (08:12)
[2025-02-08] MEDS ORDERED: MAG HYDROX/AL HYDROX/SIMETH 30 ML CUP PO PRN (08:12)
[2025-02-08] MEDS ORDERED: ZOLPIDEM 5 MG TAB PO PRN (08:12)
--- NOTE | 2025-02-08 08:17 | P.PCN ---
Date of Procedure: 02/08/25 Operative Findings: CARDIAC CATHETERIZATION AND PERCUTANEOUS CORONARY INTERVENTION PERFORMING PHYSICIAN: Javan Aguilera MD, [facility] PROCEDURE PERFORMED: 1. Selective right and left coronary angiogram and left heart catheterization 2. Successful stenting of mid RCA using 4.0 x 18 mm Xience CINDI with an excel lent angiographic results 3. Adjunctive use of IVUS and IFR 4. Ultrasound-guided access of the right radial artery INDICATION: Symptomatic 54-year-old gentleman who underwent myocardial perfusion imaging stress that showed inferior ischemia and also echo showed cardiomyopathy COMPLICATION: None APPROACH: Radial artery LEVEL OF SEDATION: Moderate with the sedation time off 48 minutes PROCEDURE DESCRIPTION: After obtaining informed consent the patient was brought to the cardiac Director Of Clinical Education with right radial artery was cannulated using micropuncture technique under ultrasound guidance a micropuncture wire passed easily then I placed a 6 [place] 11 cm sheath at the right radial artery with a give the patient 2 mg of verapamil intra-arterial and 5000's of heparin intravenous with continuous ACT monitoring. Selective right and left coronary angiogram performed using JR4 and JL 3.5 catheters. After that left heart catheterization was performed using the JR4 catheter which crossed the aortic valve. After that I did decide to do an IFR of the RCA. After zeroing the Dobler wire and equalized in between the Dobler wire and guiding catheter which was JR4 guiding catheter the RCA was en gaged and subsequently wired using the Dobler wire. iFR came to be at 0.82. At that point I decided to intervene on the RCA. Anticoagulation continued using heparin with continuous ACT monitoring. Subsequently I did wired the RCA using a run-through wire. I did IVUS which showed a diameter between 3.5 to 4 mm. I did predilated using 3.5 mm balloon before I deployed 4.0 x 18 mm stent postdila brunilda using 4.5 mm noncompliant balloon with IVUS and angiogram showed good results and the procedure was completed with no complication SELECTIVE CORONARY ANGIOGRAM: The right coronary artery: Large caliber vessel and a dominant vessel with intermediate to severe disease involving the midportion documented to be flow-limiting by Doppler wire. The proximal RCA has mild to moderate disease Left main: Is angiographically normal The left circumflex: Large caliber vessel with no evidence of high-grade stenosis The left anterior descending artery: Large caliber vessel also with no evidence of high-grade stenosis HEMODYNAMICS: The LVEDP was 19 mmHg with no significant gradient across aortic valve CONCLUSION: 1. Severe disease involving the mid RCA. I did perform successful PCI of the RCA as described above 2. Mild disease involving the left coronary system 3. Elevated left-sided filling pressure POSTPROCEDURE MANAGEMENT: 1. Dual antiplatelet therapy using aspirin and Effient for 6 month 2. Aggressive cholesterol control 3. Follow-up with the patient
[2025-02-08] MEDS: ASPIRIN 325 MG TAB PO ONE (10:31)
[2025-02-08] MEDS: ATORVASTATIN 10 MG TAB PO SCH (10:31)
[2025-02-08] MEDS: EZETIMIBE 10 MG TAB PO SCH (10:31)
[2025-02-08] MEDS: ASPIRIN 81 MG PO SCH (10:31)
[2025-02-08] MEDS: SPIRONOLACTONE 25 MG TAB PO SCH (10:32)
[2025-02-08] MEDS: LISINOPRIL-HCTZ 20-25 MG 1 EACH TAB PO SCH (10:32)
[2025-02-08] MEDS: hydrALAZINE HCL 50 MG TAB PO SCH (10:32)
[2025-02-08] MEDS: ISOSORBIDE MONONITRATE ER 30 MG TAB.ER.24H PO SCH (10:32)
[2025-02-08] MEDS: lisinopriL 20 MG TAB PO SCH (21:29)
[2025-02-09 05:56] LABS: African American GFR (CKD) >90 (>60 ml/min/1.73 sqM); Non-African American GFR(CKD) >90 (>60 ml/min/1.73 sqM)
[2025-02-09 07:29] VITALS: BP 144/79; PULSE 53; RESP 17; TEMP 98
[2025-02-09] MEDS: PRASUGREL 10 MG TAB PO SCH (08:07)
--- NOTE | 2025-02-09 10:22 | P.DS ---
Providers Attending physician: Javan Aguilera Consults: 02/08/25 08:12 Consult Physician Routine Consulting Provider: [facility] Consult Reason/Comments: Post Interventional patient Do you want consulting provider notified?: Already Contacted Primary care physician: Kanu [facility] Course: The patient is a pleasant 54-year-old gentleman who underwent yesterday successful PCI with a good angiographic results and with no complication please refer to the procedure performed yesterday He was seen and evaluated this morning with he is asymptomatic and hemodynamically stable. The patient is going to be discharged home on dual antiplatelet therapy and statin and I will follow-up with the patient next week in the office Plan - Discharge Summary Discharge Rx Participant: No New Discharge Prescriptions: New Prasugrel [Effient] 10 mg PO DAILY #90 tab Aspirin 81 mg PO DAILY #90 tab Continue Lisinopril-Hctz 20-25 mg [Zestoretic 20-25] 1 tab PO DAILY lisinopriL [Zestril] 20 mg PO HS #90 tab hydrALAZINE HCL [Apresoline] 50 mg PO BID #180 tab Isosorbide Mononitrate ER [Imdur] 30 mg PO DAILY #90 tab Nitroglycerin Sl Tabs [Nitrostat] 0.4 mg SUBLINGUAL Q5M PRN #25 tab PRN Reason: Chest Pain Eplerenone 25 mg PO DAILY Ezetimibe/Simvastatin [Ezetimibe/Simvastatin 10-40 mg] 0.5 tab PO DAILY Discharge Medication List Lisinopril-Hctz 20-25 mg [Zestoretic 20-25] 1 tab PO DAILY 12/19/23 [History] Isosorbide Mononitrate ER [Imdur] 30 mg PO DAILY #90 tab 12/21/23 [Rx] hydrALAZINE HCL [Apresoline] 50 mg PO BID #180 tab 12/21/23 [Rx] lisinopriL [Zestril] 20 mg PO HS #90 tab 12/21/23 [Rx] Nitroglycerin Sl Tabs [Nitrostat] 0.4 mg SUBLINGUAL Q5M PRN #25 tab 01/04/24 [Rx] Eplerenone 25 mg PO DAILY 01/06/25 [History] Ezetimibe/Simvastatin [Ezetimibe/Simvastatin 10-40 mg] 0.5 tab PO DAILY 02/03/25 [History] Aspirin 81 mg PO DAILY #90 tab 02/09/25 [Rx] Prasugrel [Effient] 10 mg PO DAILY #90 tab 02/09/25 [Rx] Follow up Appointment(s)/Referral(s): Javan Aguilera MD [STAFF PHYSICIAN] - 1 Week (Office will call with appointment date and time.) Patient Instructions/Handouts: *Surgery [facility] - After Heart Catheterization - Data Scientist Instructions, Moderate Sedation (DC), After Radial Heart Catheterization (GEN) Activity/Diet/Wound Care/Special Instructions: NO DRIVING FOR 48 HOURS. OK TO SHOWER TOMORROW (REMOVE DRESSING PRIOR TO SHOWERING, NO SOONER THAN 24 HOURS AFTER DRESSING PUT ON) NO NEED TO REAPPLY DRESSING BUT DO AVOID LOTIONS POWDERS OINTMENTS TO PUNCTURE SITE TO AVOID RISK OF INFECTION. SIGNS OF INFECTION IE: FEVER RASH UNUSUAL DRAINAGE HARD KNOT OR SWELLING OVER PUNCTURE SITE CONTACT [facility]res TO BE EVALUATED OR GO TO ER. IF PUNCTURE SITE BLEEDS HEAVILY, APPLY FIRM PRESSURE AND GO TO NEAREST ER. DO NOT DRIVE SELF. ACETAMINOPHEN FOR PAIN IF NEEDED FOR INCISION PAIN NEEDED/DIRECTED. MEDICATIONS PER INSTRUCTOR BALLROOM DANCING.
== END 2025-02-09 10:50 | disposition home or self-care (01) ==
LOC: CATHCVL 06:06 → 6NMEDSUR 08:08 → CATHCVL 02-09 10:50
PROVIDERS: ATTEND Internal Medicine Interventional Cardiology
DX: I25.10 Atherosclerotic heart disease of native coronary artery without angina pectoris (principal); I42.9 Cardiomyopathy, unspecified; I10 Essential (primary) hypertension; E78.5 Hyperlipidemia, unspecified; E66.3 Overweight; Z79.02 Long term (current) use of antithrombotics/antiplatelets; Z79.82 Long term (current) use of aspirin; Z79.899 Other long term (current) drug therapy
CPT/HCPCS: 92978; 93458; 93799; 82565; C9600; C1894; C1769 ×2; C1753; C1725 ×2; J2250; J1644 ×3; J2003; J3010; Q9967; J2305